=== PATIENT | male | born 1975 ===

== ENCOUNTER 2017-05-21 02:56 | Inpatient (IN) | payer OTHER ==
[2017-05-21 03:17] VITALS: BMI 38.7
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
[2017-05-21 03:42] LABS: BASO # 0.1 K/uL (0.0-0.2); BASO % 1.2 % (0.0-2.0); EOS # 0.2 K/uL (0.0-0.7); EOS % 2.5 % (0.0-4.0); HEMATOCRIT 52.3 % (35.0-51.0); LYMPH # 2.4 K/uL (1.0-4.3); LYMPH % 23.9 % (20.0-40.0); MEAN CELL VOLUME 91.3 fL (80.0-94.0); MEAN CORPUSCULAR HEMOGLOBIN 31.6 pg (27.0-31.0); MEAN CORPUSCULAR HGB CONC 34.6 g/dL (33.0-37.0); MONO % 10.3 % (0.0-10.0); NRBC % 0.1 % (0.0-2.0); RED CELL DISTRIBUTION WIDTH 14.8 % (11.5-14.5)
[2017-05-21 03:52] LABS: INR 1.1
[2017-05-21 03:54] LABS: ALCOHOL SERUM 233 mg/dl (0-10); ALKALINE PHOSPHATASE 121 U/L (38-126); ALT/SGPT 124 U/L (21-72); AST/SGOT 101 U/L (17-59); BILIRUBIN,TOTAL 0.7 mg/dL (0.2-1.3); BLOOD UREA NITROGEN 9 mg/dL (9-20); CALCIUM 8.6 mg/dl (8.6-10.4); CARBON DIOXIDE 21 mmol/L (22-30); CHLORIDE 94 mmol/L (98-107); GFR AFRICAN-AMERICAN > 60; GLUCOSE,RANDOM 103 mg/dL (75-110); POTASSIUM 3.7 mmol/L (3.6-5.2); SODIUM 134 mmol/L (132-148)
[2017-05-21 04:15] LABS: ALB/GLOB RATIO 1.1 (1.0-2.1)
[2017-05-21] MEDS ORDERED: Lidocaine 2% w Epi 1:100,000 Inj IJ ONE (04:40)
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
[2017-05-21] MEDS ORDERED: Bacitracin 500 Units/gm Oint Foilpak UD ONE ×2 (05:25→15:40)
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
[2017-05-21] MEDS ORDERED: cefTRIAXone IV 1 gm in Dextros 50 ML IVPB ONE (06:45)
[2017-05-21] MEDS: Potassium Ch 20mEq in D5-1/2NS 1,000 ML IV SCH ×3 (06:58→15:00)
[2017-05-21] MEDS: cefTRIAXone IV 1 gm in Dextros 50 ML IVPB SCH (07:00)
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
[2017-05-21] MEDS ORDERED: Tetanus/Diphtheria Toxoids 0.5 ml Syringe IM ONE (07:15)
[2017-05-21] MEDS: Vancomycin 1 gm/NS 200 ml 1 GM/200 ML BAG IVPB SCH ×2 (08:49→20:00)
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
[2017-05-21 09:50] LABS: BASO # 0.1 K/uL (0.0-0.2); BASO % 1.1 % (0.0-2.0); EOS # 0.1 K/uL (0.0-0.7); EOS % 0.5 % (0.0-4.0); HEMATOCRIT 48.6 % (35.0-51.0); LYMPH # 1.5 K/uL (1.0-4.3); LYMPH % 14.7 % (20.0-40.0); MEAN CELL VOLUME 91.4 fL (80.0-94.0); MEAN CORPUSCULAR HEMOGLOBIN 31.4 pg (27.0-31.0); MEAN CORPUSCULAR HGB CONC 34.3 g/dL (33.0-37.0); MEAN PLATELET VOLUME 8.9 fL (7.2-11.7); MONO % 10.1 % (0.0-10.0); NRBC % 0.8 % (0.0-2.0); RED CELL DISTRIBUTION WIDTH 14.3 % (11.5-14.5); WHITE BLOOD COUNT 9.9 K/uL (4.8-10.8)
[2017-05-21 10:30] LABS: THYROID STIMULATING HORMONE 2.72 mIU/L (0.46-4.68)
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
[2017-05-21] MEDS ORDERED: Metoprolol 1 mg/ml Inj IVP ONE ×2 (12:00→12:08)
[2017-05-21] MEDS ORDERED: Lidocaine 4% (Laryng-O-Jet) Kit MM ONE (12:13)
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
[2017-05-21] MEDS ORDERED: Propofol 10 mg/ml Inj (20 ML) ONE ×3 (12:28→15:24)
[2017-05-21] MEDS ORDERED: Midazolam 2 MG/2 ML VIAL ONE ×3 (12:34→15:23)
[2017-05-21] MEDS ORDERED: Propofol 10 mg/ml Inj (20 ML) IV ONE (13:16)
[2017-05-21] MEDS ORDERED: Lactated Ringer's 1,000 ML IV ONE ×2 (13:37→16:30)
--- NOTE | 2017-05-21 14:04 | CARD ---
APPROVED REPORT EXAM: Two-dimensional and M-mode echocardiogram with Doppler and color Doppler. Other Information Quality : GoodRhythm : INDICATION Abnormal EKG/Arrhythmia Chest Pain Palpitations 2D DIMENSIONS IVSd1.1 (0.7-1.1cm)LVDd4.1 (3.9-5.9cm) PWd1.2 (0.7-1.1cm)LVDs2.8 (2.5-4.0cm) FS (%) 31.5 %LVEF (%)59.8 (>50%) M-Mode DIMENSIONS Left Atrium (MM)4.22 (2.5-4.0cm)Aortic Root3.68 (2.2-3.7cm) Aortic Cusp Exc.2.50 (1.5-2.0cm) Mitral Valve E/A ratio0.0 TDI E/Lateral E'0.0E/Medial E'0.0 Tricuspid Valve TR Peak [id number]/sTR Peak Gr.128mmHg LEFT VENTRICLE The left ventricle is normal size. There is normal left ventricular wall thickness. The left ventricular function is normal. The left ventricular ejection fraction is within the normal range. There is normal LV segmental wall motion. Transmitral Doppler flow pattern is Grade I-abnormal relaxation pattern. RIGHT VENTRICLE The right ventricle is normal size. There is normal right ventricular wall thickness. The right ventricular systolic function is normal. ATRIA The left atrium is borderline dilated. The right atrium size is normal. AORTIC VALVE The aortic valve is normal in structure. No aortic regurgitation is present. There is no aortic valvular stenosis. MITRAL VALVE The mitral valve is normal in structure. There is no evidence of mitral valve prolapse. TRICUSPID VALVE The tricuspid valve is normal in structure. GREAT VESSELS The aortic root is normal in size. The IVC was not visualized. <Conclusion> The left ventricle is normal size. There is normal left ventricular wall thickness. The left ventricular function is normal. The left ventricular ejection fraction is within the normal range. There is normal LV segmental wall motion. Transmitral Doppler flow pattern is Grade I-abnormal relaxation pattern.
[2017-05-21] MEDS ORDERED: Bacitracin 150,000 UNIT in Sodium Chloride 0.9% Irrig 3,000 ML IR SCH (14:59)
[2017-05-21 15:01] LABS: BLOOD UREA NITROGEN 6 mg/dL (9-20); CALCIUM 7.9 mg/dl (8.6-10.4); CARBON DIOXIDE 16 mmol/L (22-30); CHLORIDE 100 mmol/L (98-107); GFR AFRICAN-AMERICAN > 60; GLUCOSE,RANDOM 109 mg/dL (75-110); MAGNESIUM 1.4 mg/dL (1.6-2.3); PHOSPHOROUS 3.3 mg/dL (2.5-4.5); POTASSIUM 3.5 mmol/L (3.6-5.2); SODIUM 132 mmol/L (132-148)
[2017-05-21] MEDS: Magnesium Sulfate 1 gm in D5W 1 GM/100 ML BAG IVPB SCH ×2 (15:23→16:01)
[2017-05-21] MEDS ORDERED: Lidocaine Hydrochloride 5 ML INJ ONE (15:25)
[2017-05-21] MEDS ORDERED: ceFAZolin IV 2 gm in Dextrose 2 GM/50 ML BAG IVPB ONE (15:40)
[2017-05-21] MEDS ORDERED: Bacitracin Ointment 30 GM TUBE ONE (16:10)
[2017-05-21] MEDS ORDERED: Albuterol HFA 90 mcg/actuation (8 g) ONE (16:43)
[2017-05-21] MEDS ORDERED: Morphine 4 MG/ML VIAL ONE ×2 (16:50→17:53)
[2017-05-21] MEDS ORDERED: Phenylephrine 10 mg/ml Inj ONE (17:01)
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
--- NOTE | 2017-05-21 18:52 | PCM.SURG1 ---
Surgeon's Initial Post Op Note - Surgeon's Notes Surgeon: Willie [employer] Accounts Director: MICHELL Bass Type of Anesthesia: General Endo Anesthesia Administered By: DR Estevez Pre-Operative Diagnosis: Open fracture R patella Operative Findings: open fracture R patella. Quad tendon rupture (right). rupture lateral retinaculum. synovitis Post-Operative Diagnosis: fx proximal pole patella- avulsion. rupture quad tendon. rupture lateral retinaculum. skin necrosis Operation Performed: open treatment open patella fx. primary repair quad tendon. primary repair ;lateral patella retinaculum. arthrotomy/partial synovectomy. excision skin/subcutaneous tissue/muscle. irrigation debridemnt open fx pateela(culture and biopsy). applx knee immobilizer. positioning of fluor/interpreattion of video images Specimen/Specimens Removed: bone/tendon/synovium Estimated Blood Loss: EBL {In ML}: 20 Blood Products Given: N/A Drains Used: No Drains Post-Op Condition: Good Date of Surgery/Procedure: 05/21/17 Time of Surgery/Procedure: 17:15 (time in room anaesthesia indcution time)
[2017-05-21] MEDS: Dextrose 5%/0.45% NS 1,000 ML IV SCH (20:00)
[2017-05-22] MEDS: Potassium Ch 20mEq in D5-1/2NS 1,000 ML IV SCH (00:10)
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
[2017-05-22] MEDS: cefTRIAXone IV 1 gm in Dextros 50 ML IVPB SCH (06:27)
[2017-05-22 06:55] LABS: BASO % 0.1 % (0.0-2.0); HEMATOCRIT 45.4 % (35.0-51.0); LYMPH # 0.6 K/uL (1.0-4.3); MEAN CELL VOLUME 91.2 fL (80.0-94.0); MEAN CORPUSCULAR HEMOGLOBIN 31.4 pg (27.0-31.0); MEAN CORPUSCULAR HGB CONC 34.5 g/dL (33.0-37.0); MEAN PLATELET VOLUME 9.6 fL (7.2-11.7); MONO # 0.5 K/uL (0.0-0.8); MONO % 3.5 % (0.0-10.0); NRBC % 0.4 % (0.0-2.0); PLATELET COUNT 203 K/uL (130-400); WHITE BLOOD COUNT 15.3 K/uL (4.8-10.8)
[2017-05-22 07:13] LABS: ALB/GLOB RATIO 1.7 (1.0-2.1); ALKALINE PHOSPHATASE 65 U/L (38-126); ALT/SGPT 76 U/L (21-72); AST/SGOT 56 U/L (17-59); BILIRUBIN,TOTAL 1.2 mg/dL (0.2-1.3); BLOOD UREA NITROGEN 9 mg/dL (9-20); CALCIUM 7.6 mg/dl (8.6-10.4); CARBON DIOXIDE 24 mmol/L (22-30); CHLORIDE 97 mmol/L (98-107); GFR AFRICAN-AMERICAN > 60; GLUCOSE,RANDOM 154 mg/dL (75-110); MAGNESIUM 1.8 mg/dL (1.6-2.3); PHOSPHOROUS 1.7 mg/dL (2.5-4.5); POTASSIUM 3.9 mmol/L (3.6-5.2); SODIUM 132 mmol/L (132-148); TOTAL PROTEIN 5.8 g/dL (6.3-8.3)
[2017-05-22] MEDS ORDERED: Sodium Phosphate 15 MMOLE in Sodium Chloride 0.9% 250 ML IVPB ONE (07:55)
[2017-05-22] MEDS: Dextrose 5%/0.45% NS 1,000 ML IV SCH ×2 (08:06→16:56)
[2017-05-22] MEDS: Vancomycin 1 gm/NS 200 ml 1 GM/200 ML BAG IVPB SCH ×2 (08:07→20:00)
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
--- NOTE | 2017-05-22 08:51 | RAD ---
PROCEDURE: Intraoperative Fluoroscopy. HISTORY: RIGHT PATELLA FX FINDINGS: Fluoroscopic assistance was provided for apparent open reduction internal fixation of right patellar fracture.. Please refer to the time was utilized with a cumulative radiation dose is 0.40 mGy.
[2017-05-22 09:09] LABS: NEUTROPHIL 85 % (50-75); TOTAL CELLS COUNTED 100
[2017-05-22 09:10] LABS: GIANT PLATELETS PRESENT; LARGE PLATELETS PRESENT
[2017-05-22] MEDS: Potassium & Sodium Phosphate PO SCH ×3 (09:20→17:06)
[2017-05-22] MEDS: diltiaZEM 120 mg/24 Hours CD Cap PO SCH (10:40)
[2017-05-22] MEDS: Docusate-Senna 50 mg-8.6 mg Tab PO SCH ×2 (10:41→17:06)
[2017-05-22] MEDS: Enoxaparin 40 mg Syringe SC SCH (10:41)
--- NOTE | 2017-05-22 11:02 | CARD ---
APPROVED REPORT EKG Measurement Heart [id number] <Conclusion> Atrial flutter with rvr Abnormal ECG
--- NOTE | 2017-05-22 11:10 | CARD ---
APPROVED REPORT EKG Measurement Heart [id number] <Conclusion> Atrial fibrillation with rapid ventricular response with premature ventricular or aberrantly conducted complexes Moderate voltage criteria for LVH, may be normal variant Nonspecific ST and T wave abnormality Abnormal ECG
--- NOTE | 2017-05-22 11:11 | CARD ---
APPROVED REPORT EKG Measurement Heart [id number] <Conclusion> Supraventricular tachycardia Marked ST abnormality, possible lateral subendocardial injury Abnormal ECG
--- NOTE | 2017-05-22 11:40 | CP.CCUPN ---
<EduardoJoselyn L. - Last Filed: 05/22/17 11:33> CCU Subjective - Physician Review Subjective (Free Text): Patient seen and examined at bedside and in no acute distress. Patient says his right knee pain is tolerable with the pain medication. Patient has had no bowel movement. Patient has some chest wall pain from the air bag deploying, but says it is better today than yesterday. Patient denies any nausea, vomiting, abdominal pain, constipation, or diarrhea. CCU Objective - Vital Signs / Intake & Output Vital Signs (Last 4 hours): Vital Signs Pulse Resp BP Pulse Ox 05/22/17 09:19 123/63 05/22/17 08:13 64 16 119/61 97 05/22/17 08:00 63 16 97 Intake and Output (Last 8hrs): Intake & Output 05/21/17 05/22/17 05/22/17 22:59 06:59 14:59 Intake Total 752.5 730 177.5 Output Total 1320 0 0 Balance -567.5 730 177.5 Weight 235 lb 4.8 oz Intake: IV 75 50 Intake, IV Amount 677.5 680 177.5 Left Forearm 577.5 600 162.5 Right Forearm 100 80 15 Oral 0 0 0 Output: Urine 1320 0 0 Urine, Voided 1320 0 0 Other: # Voids Urine, Voided 1 - Physical Exam Head: Positive for: Atraumatic, Normocephalic Pupils: Positive for: PERRL Extroacular Muscles: Positive for: EOMI Mouth: Positive for: Moist Mucous Membranes Respiratory/Chest: Positive for: Clear to Auscultation, Good Air Exchange. Negative for: Respiratory Distress Abdomen: Positive for: Normal Bowel Sounds. Negative for: Tenderness, Distention Upper Extremity: Positive for: Other (right lower patella dressing with tenderness on palpation) Lower Extremity: Positive for: NORMAL PULSES, Other (right leg in knee imobilizer ) Skin: Positive for: Warm Psychiatric: Positive for: Alert, Oriented x 3 - Medications Active Medications: Active Medications Generic Name Dose Route Start Last Admin Trade Name Freq PRN Reason Stop Dose Admin Aspirin 81 mg 05/22/17 10:00 05/22/17 10:40 Ecotrin PO 81 mg DAILY SHAUNA Administration Diltiazem HCl 120 mg 05/22/17 10:00 05/22/17 10:40 Cardizem Cd PO 120 mg DAILY SHAUNA Administration Enoxaparin Sodium 40 mg 05/22/17 10:00 05/22/17 10:41 Lovenox SC 40 mg DAILY SHAUNA Administration Hydromorphone/Sodium Chloride 6 mg 05/21/17 21:07 05/21/17 22:10 Dilaudid Therapy Manager IV 6 mg Q4H PRN Administration Pain, moderate (4-7) Protocol Potassium Chloride/Dextrose/Sod Cl 1,000 mls @ 125 mls/hr 05/21/17 07:00 00:10 Potassium Chl 20 Meq In D5-1/2ns IV Not Given .Q8H SHAUNA Vancomycin/Sodium Chloride 1 gm in 200 mls @ 133.333 mls/hr 05/21/17 07:30 08:07 Vancomycin 1 Gm/Ns 200 Ml IVPB 05/26/17 07:31 133.333 mls/hr Q12H SHAUNA Administration Ceftriaxone Sodium 50 mls @ 100 mls/hr 05/21/17 07:15 05/22/17 06:27 Rocephin Iv 1 Gm Duplex IVPB 100 mls/hr Q24H SHAUNA Administration Diltiazem HCl 125 mg/ Sodium 125 mls @ 5 mls/hr 05/21/17 20:45 05/22/17 06:06 Chloride IV 5 mg/hr .Q24H PRN 5 mls/hr Protocol Administration 5 MG/HR Dextrose/Sodium Chloride 1,000 mls @ 75 mls/hr 05/21/17 19:00 05/22/17 08:06 Dextrose 5%/0.45% Ns 1000 Ml IV Not Given .[id number] SHAUNA Sodium Phosphate 15 mmole/ 255 mls @ 50 mls/hr 05/22/17 07:55 05/22/17 09:20 Sodium Chloride IVPB 05/22/17 13:00 50 mls/hr .Q5H6M ONE Administration Metoprolol Tartrate 25 mg 05/21/17 10:00 05/22/17 09:19 Lopressor PO 25 mg BID SHAUNA Administration Nicotine 1 patch 05/21/17 10:00 05/22/17 09:20 Nicoderm Cq TD 1 patch DAILY SHAUNA Administration Pantoprazole Sodium 40 mg 05/21/17 10:00 05/22/17 09:20 Protonix Inj IVP 40 mg DAILY SHAUNA Administration Potassium Phos/Sodium Phos 1 pkt 05/22/17 09:00 05/22/17 09:20 Neutra-Phos PO 05/22/17 17:01 1 pkt TIDCC SHAUNA Administration Senna/Docusate Sodium 1 tab 05/22/17 10:00 05/22/17 10:41 Senokot S 50 Mg-8.6 Mg PO 1 tab BID SHAUNA Administration - Patient Studies Lab Studies: Microbiology Studies 05/21/17 19:30 Gram Stain - Final Knee - Right 05/21/17 19:30 Gram Stain - Final Knee - Right Lab Studies 05/22/17 05/22/17 05/21/17 Range/Units 06:44 06:44 15:07 WBC 15.3 H D (4.8-10.8) K/uL RBC 4.98 (4.40-5.90) Mil/uL Hgb 15.7 (12.0-18.0) g/dL Hct 45.4 (35.0-51.0) % MCV 91.2 (80.0-94.0) fL MCH 31.4 H (27.0-31.0) pg MCHC 34.5 (33.0-37.0) g/dL RDW 14.0 (11.5-14.5) % Plt Count 203 (130-400) K/uL MPV 9.6 (7.2-11.7) fL Neut % (Auto) 92.4 H (50.0-75.0) % Lymph % (Auto) 4.0 L (20.0-40.0) % [place] % (Auto) 3.5 (0.0-10.0) % Eos % (Auto) 0.0 (0.0-4.0) % Baso % (Auto) 0.1 (0.0-2.0) % Neut # 14.2 H (1.8-7.0) K/uL Lymph # 0.6 L (1.0-4.3) K/uL [place] # 0.5 (0.0-0.8) K/uL Eos # 0.0 (0.0-0.7) K/uL Baso # 0.0 (0.0-0.2) K/uL Neutrophils % (Manual) 85 H (50-75) % Band Neutrophils % 8 H (0-2) % Lymphocytes % (Manual) 6 L (20-40) % Monocytes % (Manual) 1 (0-10) % Platelet Estimate Normal (NORMAL) Large Platelets Present Giant Platelets Present Sodium 132 (132-148) mmol/L Potassium 3.9 (3.6-5.2) mmol/L Chloride 97 L (98-107) mmol/L Carbon Dioxide 24 (22-30) mmol/L Anion Gap 14 (10-20) BUN 9 (9-20) mg/dL Creatinine 0.8 (0.8-1.5) mg/dL Est GFR ( Amer) > 60 Est GFR (Non-Af Amer) > 60 Random Glucose 154 H (75-110) mg/dL Calcium 7.6 L (8.6-10.4) mg/dl Phosphorus 1.7 L (2.5-4.5) mg/dL Magnesium 1.8 (1.6-2.3) mg/dL Total Bilirubin 1.2 (0.2-1.3) mg/dL AST 56 (17-59) U/L ALT 76 H D (21-72) U/L Alkaline Phosphatase 65 (38-126) U/L Total Creatine Kinase (55-170) U/L CK-MB (Mass) (0.0-3.38) ng/mL Troponin I (0.00-0.120) ng/mL Troponin I, Quant (0.00-0.120) ng/mL NT-Pro-B Natriuret Pep (0-450) pg/mL Total Protein 5.8 L (6.3-8.3) g/dL Albumin 3.6 (3.5-5.0) g/dL Globulin 2.2 (2.2-3.9) gm/dL Albumin/Globulin Ratio 1.7 (1.0-2.1) TSH 3rd Generation (0.46-4.68) mIU/L Urine Opiates Screen (NEGATIVE) Urine Methadone Screen (NEGATIVE) Ur Barbiturates Screen (NEGATIVE) Ur Phencyclidine Scrn (NEGATIVE) Ur Amphetamines Screen (NEGATIVE) U Benzodiazepines Scrn (NEGATIVE) U Oth Cocaine Metabols (NEGATIVE) U Cannabinoids Screen (NEGATIVE) Hepatitis A IgM Ab (NEGATIVE) Hep Bs Antigen (NEGATIVE) Hep B Core IgM Ab (NEGATIVE) Hepatitis C Antibody (NEGATIVE) Blood Type O POSITIVE Antibody Screen Negative 05/21/17 05/21/17 05/21/17 Range/Units 15:07 12:18 10:54 WBC (4.8-10.8) K/uL RBC (4.40-5.90) Mil/uL Hgb (12.0-18.0) g/dL Hct (35.0-51.0) % MCV (80.0-94.0) fL MCH (27.0-31.0) pg MCHC (33.0-37.0) g/dL RDW (11.5-14.5) % Plt Count (130-400) K/uL MPV (7.2-11.7) fL Neut % (Auto) (50.0-75.0) % Lymph % (Auto) (20.0-40.0) % [place] % (Auto) (0.0-10.0) % Eos % (Auto) (0.0-4.0) % Baso % (Auto) (0.0-2.0) % Neut # (1.8-7.0) K/uL Lymph # (1.0-4.3) K/uL [place] # (0.0-0.8) K/uL Eos # (0.0-0.7) K/uL Baso # (0.0-0.2) K/uL Neutrophils % (Manual) (50-75) % Band Neutrophils % (0-2) % Lymphocytes % (Manual) (20-40) % Monocytes % (Manual) (0-10) % Platelet Estimate (NORMAL) Large Platelets Giant Platelets Sodium (132-148) mmol/L Potassium (3.6-5.2) mmol/L Chloride (98-107) mmol/L Carbon Dioxide (22-30) mmol/L Anion Gap (10-20) BUN (9-20) mg/dL Creatinine (0.8-1.5) mg/dL Est GFR ( Amer) Est GFR (Non-Af Amer) Random Glucose (75-110) mg/dL Calcium (8.6-10.4) mg/dl Phosphorus (2.5-4.5) mg/dL Magnesium (1.6-2.3) mg/dL Total Bilirubin (0.2-1.3) mg/dL AST (17-59) U/L ALT (21-72) U/L Alkaline Phosphatase (38-126) U/L Total Creatine Kinase 874 H (55-170) U/L CK-MB (Mass) 2.56 (0.0-3.38) ng/mL Troponin I (0.00-0.120) ng/mL Troponin I, Quant < 0.0120 (0.00-0.120) ng/mL NT-Pro-B Natriuret Pep (0-450) pg/mL Total Protein (6.3-8.3) g/dL Albumin (3.5-5.0) g/dL Globulin (2.2-3.9) gm/dL Albumin/Globulin Ratio (1.0-2.1) TSH 3rd Generation (0.46-4.68) mIU/L Urine Opiates Screen Positive H (NEGATIVE) Urine Methadone Screen Negative (NEGATIVE) Ur Barbiturates Screen Negative (NEGATIVE) Ur Phencyclidine Scrn Negative (NEGATIVE) Ur Amphetamines Screen Negative (NEGATIVE) U Benzodiazepines Scrn Negative (NEGATIVE) U Oth Cocaine Metabols Negative (NEGATIVE) U Cannabinoids Screen Negative (NEGATIVE) Hepatitis A IgM Ab Negative (NEGATIVE) Hep Bs Antigen Negative (NEGATIVE) Hep B Core IgM Ab Negative (NEGATIVE) Hepatitis C Antibody Negative (NEGATIVE) Blood Type Antibody Screen 05/21/17 Range/Units 09:42 WBC (4.8-10.8) K/uL RBC (4.40-5.90) Mil/uL Hgb (12.0-18.0) g/dL Hct (35.0-51.0) % MCV (80.0-94.0) fL MCH (27.0-31.0) pg MCHC (33.0-37.0) g/dL RDW (11.5-14.5) % Plt Count (130-400) K/uL MPV (7.2-11.7) fL Neut % (Auto) (50.0-75.0) % Lymph % (Auto) (20.0-40.0) % [place] % (Auto) (0.0-10.0) % Eos % (Auto) (0.0-4.0) % Baso % (Auto) (0.0-2.0) % Neut # (1.8-7.0) K/uL Lymph # (1.0-4.3) K/uL [place] # (0.0-0.8) K/uL Eos # (0.0-0.7) K/uL Baso # (0.0-0.2) K/uL Neutrophils % (Manual) (50-75) % Band Neutrophils % (0-2) % Lymphocytes % (Manual) (20-40) % Monocytes % (Manual) (0-10) % Platelet Estimate (NORMAL) Large Platelets Giant Platelets Sodium 132 (132-148) mmol/L Potassium 3.5 L (3.6-5.2) mmol/L Chloride 100 (98-107) mmol/L Carbon Dioxide 16 L (22-30) mmol/L Anion Gap 20 (10-20) BUN 6 L (9-20) mg/dL Creatinine 0.6 L (0.8-1.5) mg/dL Est GFR ( Amer) > 60 Est GFR (Non-Af Amer) > 60 Random Glucose 109 (75-110) mg/dL Calcium 7.9 L (8.6-10.4) mg/dl Phosphorus 3.3 (2.5-4.5) mg/dL Magnesium 1.4 L (1.6-2.3) mg/dL Total Bilirubin (0.2-1.3) mg/dL AST (17-59) U/L ALT (21-72) U/L Alkaline Phosphatase (38-126) U/L Total Creatine Kinase (55-170) U/L CK-MB (Mass) (0.0-3.38) ng/mL Troponin I < 0.0120 (0.00-0.120) ng/mL Troponin I, Quant (0.00-0.120) ng/mL NT-Pro-B Natriuret Pep 176 (0-450) pg/mL Total Protein (6.3-8.3) g/dL Albumin (3.5-5.0) g/dL Globulin (2.2-3.9) gm/dL Albumin/Globulin Ratio (1.0-2.1) TSH 3rd Generation 2.72 (0.46-4.68) mIU/L Urine Opiates Screen (NEGATIVE) Urine Methadone Screen (NEGATIVE) Ur Barbiturates Screen (NEGATIVE) Ur Phencyclidine Scrn (NEGATIVE) Ur Amphetamines Screen (NEGATIVE) U Benzodiazepines Scrn (NEGATIVE) U Oth Cocaine Metabols (NEGATIVE) U Cannabinoids Screen (NEGATIVE) Hepatitis A IgM Ab (NEGATIVE) Hep Bs Antigen (NEGATIVE) Hep B Core IgM Ab (NEGATIVE) Hepatitis C Antibody (NEGATIVE) Blood Type Antibody Screen Laboratory Results - last 24 hr 05/21/17 05/21/17 05/21/17 09:42 10:54 12:18 WBC RBC Hgb Hct MCV MCH MCHC RDW Plt Count MPV Neut % (Auto) Lymph % (Auto) [place] % (Auto) Eos % (Auto) Baso % (Auto) Neut # Lymph # [place] # Eos # Baso # Neutrophils % (Manual) Band Neutrophils % Lymphocytes % (Manual) Monocytes % (Manual) Platelet Estimate Large Platelets Giant Platelets Sodium 132 Potassium 3.5 L Chloride 100 Carbon Dioxide 16 L Anion Gap 20 BUN 6 L Creatinine 0.6 L Est GFR ( Amer) > 60 Est GFR (Non-Af Amer) > 60 Random Glucose 109 Calcium 7.9 L Phosphorus 3.3 Magnesium 1.4 L Total Bilirubin AST ALT Alkaline Phosphatase Total Creatine Kinase CK-MB (Mass) Troponin I < 0.0120 Troponin I, Quant NT-Pro-B Natriuret Pep 176 Total Protein Albumin Globulin Albumin/Globulin Ratio TSH 3rd Generation 2.72 Urine Opiates Screen Positive H Urine Methadone Screen Negative Ur Barbiturates Screen Negative Ur Phencyclidine Scrn Negative Ur Amphetamines Screen Negative U Benzodiazepines Scrn Negative U Oth Cocaine Metabols Negative U Cannabinoids Screen Negative Hepatitis A IgM Ab Negative Hep Bs Antigen Negative Hep B Core IgM Ab Negative Hepatitis C Antibody Negative Blood Type Antibody Screen 05/21/17 05/21/17 05/22/17 15:07 15:07 06:44 WBC 15.3 H D RBC 4.98 Hgb 15.7 Hct 45.4 MCV 91.2 MCH 31.4 H MCHC 34.5 RDW 14.0 Plt Count 203 MPV 9.6 Neut % (Auto) 92.4 H Lymph % (Auto) 4.0 L [place] % (Auto) 3.5 Eos % (Auto) 0.0 Baso % (Auto) 0.1 Neut # 14.2 H Lymph # 0.6 L [place] # 0.5 Eos # 0.0 Baso # 0.0 Neutrophils % (Manual) 85 H Band Neutrophils % 8 H Lymphocytes % (Manual) 6 L Monocytes % (Manual) 1 Platelet Estimate Normal Large Platelets Present Giant Platelets Present Sodium Potassium Chloride Carbon Dioxide Anion Gap BUN Creatinine Est GFR ( Amer) Est GFR (Non-Af Amer) Random Glucose Calcium Phosphorus Magnesium Total Bilirubin AST ALT Alkaline Phosphatase Total Creatine Kinase 874 H CK-MB (Mass) 2.56 Troponin I Troponin I, Quant < 0.0120 NT-Pro-B Natriuret Pep Total Protein Albumin Globulin Albumin/Globulin Ratio TSH 3rd Generation Urine Opiates Screen Urine Methadone Screen Ur Barbiturates Screen Ur Phencyclidine Scrn Ur Amphetamines Screen U Benzodiazepines Scrn U Oth Cocaine Metabols U Cannabinoids Screen Hepatitis A IgM Ab Hep Bs Antigen Hep B Core IgM Ab Hepatitis C Antibody Blood Type O POSITIVE Antibody Screen Negative 05/22/17 06:44 WBC RBC Hgb Hct MCV MCH MCHC RDW Plt Count MPV Neut % (Auto) Lymph % (Auto) [place] % (Auto) Eos % (Auto) Baso % (Auto) Neut # Lymph # [place] # Eos # Baso # Neutrophils % (Manual) Band Neutrophils % Lymphocytes % (Manual) Monocytes % (Manual) Platelet Estimate Large Platelets Giant Platelets Sodium 132 Potassium 3.9 Chloride 97 L Carbon Dioxide 24 Anion Gap 14 BUN 9 Creatinine 0.8 Est GFR ( Amer) > 60 Est GFR (Non-Af Amer) > 60 Random Glucose 154 H Calcium 7.6 L Phosphorus 1.7 L Magnesium 1.8 Total Bilirubin 1.2 AST 56 ALT 76 H D Alkaline Phosphatase 65 Total Creatine Kinase CK-MB (Mass) Troponin I Troponin I, Quant NT-Pro-B Natriuret Pep Total Protein 5.8 L Albumin 3.6 Globulin 2.2 Albumin/Globulin Ratio 1.7 TSH 3rd Generation Urine Opiates Screen Urine Methadone Screen Ur Barbiturates Screen Ur Phencyclidine Scrn Ur Amphetamines Screen U Benzodiazepines Scrn U Oth Cocaine Metabols U Cannabinoids Screen Hepatitis A IgM Ab Hep Bs Antigen Hep B Core IgM Ab Hepatitis C Antibody Blood Type Antibody Screen Review of Systems - Constitutional Constitutional: absent: Fever, Chills, Sweats - Cardiovascular Cardiovascular: absent: Dyspnea, Leg Edema - Respiratory Respiratory: absent: Cough, Wheezing - Gastrointestinal Gastrointestinal: Constipation. absent: Diarrhea, Nausea, Vomiting - Genitourinary Genitourinary: absent: Difficulty Urinating - Musculoskeletal Additional comments: right knee pain - Integumentary Integumentary: absent: Rash Critical Care Progress Note - Nutrition Nutrition: Nutrition Category Date Time Status Regular Diet [DIET] Diets 05/22/17 Breakfast Active Assessment/Plan - Assessment and Plan (Free Text) Assessment: 41 y/o M with no significant PMHx POD #1 s/p open treatment of open patella fx with primary quad tendon, lateral patella retinaculum repair. Today's Plan: Patient stable for transfer to med/surg floor. Cardio: Echocardiogram (05/21): left ventricle is normal size, normal left ventricular wall thickness, left ventricular function is normal, EF; within normal range, normal LV segmental wall motion -Dr. Echeverria consulted, help appreciated- no further cardiac intervention -Metoprolol 25mg po BID -Diltiazem CD 120 mg po daily -titrate off diltiazem drip -Aspirin 81 mg po daily GI: constipation -docusate sodium/senna 1 tab po BID Msk: POD #1 s/p open treatment of open patella fx - Dr. Harris on consult -Right leg in immobilizer -toe touch weight bearing -hydromorphone CANVAS BAST[employer] JUMPBASTING ID: -Dr. Kern consulted, help appreciated -Vancomycin 1 gm q12h -Ceftriaxone 1gm q24h Prophylaxis: DVT: Lovenox 40 mg sc daily GI: Protonix 40mg ivp daily <Adan Mas - Last Filed: 05/22/17 12:28> CCU Objective - Vital Signs / Intake & Output Vital Signs (Last 4 hours): Vital Signs Pulse Resp BP Pulse Ox 05/22/17 11:13 67 15 141/80 94 L 05/22/17 11:00 74 17 96 05/22/17 10:13 66 15 152/71 H 98 05/22/17 10:04 71 17 170/75 H 90 L 05/22/17 10:00 84 21 97 05/22/17 09:56 64 15 189/72 H 95 05/22/17 09:53 72 22 193/92 H 98 05/22/17 09:19 123/63 05/22/17 09:13 62 15 123/63 96 05/22/17 09:00 70 14 98 Intake and Output (Last 8hrs): Intake & Output 05/21/17 05/22/17 05/22/17 22:59 06:59 14:59 Intake Total 752.5 730 177.5 Output Total 1320 0 0 Balance -567.5 730 177.5 Weight 235 lb 4.8 oz Intake: IV 75 50 Intake, IV Amount 677.5 680 177.5 Left Forearm 577.5 600 162.5 Right Forearm 100 80 15 Oral 0 0 0 Output: Urine 1320 0 0 Urine, Voided 1320 0 0 Other: # Voids Urine, Voided 1 - Medications Active Medications: Active Medications Generic Name Dose Route Start Last Admin Trade Name Freq PRN Reason Stop Dose Admin Aspirin 81 mg 05/22/17 10:00 05/22/17 10:40 Ecotrin PO 81 mg DAILY SHAUNA Administration Diltiazem HCl 120 mg 05/22/17 10:00 05/22/17 10:40 Cardizem Cd PO 120 mg DAILY SHAUNA Administration Enoxaparin Sodium 40 mg 05/22/17 10:00 05/22/17 10:41 Lovenox SC 40 mg DAILY SHAUNA Administration Hydromorphone/Sodium Chloride 6 mg 05/21/17 21:07 05/21/17 22:10 Dilaudid Therapy Manager IV 6 mg Q4H PRN Administration Pain, moderate (4-7) Protocol Potassium Chloride/Dextrose/Sod Cl 1,000 mls @ 125 mls/hr 05/21/17 07:00 00:10 Potassium Chl 20 Meq In D5-1/2ns IV Not Given .Q8H SHAUNA Vancomycin/Sodium Chloride 1 gm in 200 mls @ 133.333 mls/hr 05/21/17 07:30 08:07 Vancomycin 1 Gm/Ns 200 Ml IVPB 05/26/17 07:31 133.333 mls/hr Q12H SHAUNA Administration Ceftriaxone Sodium 50 mls @ 100 mls/hr 05/21/17 07:15 05/22/17 06:27 Rocephin Iv 1 Gm Duplex IVPB 100 mls/hr Q24H SHAUNA Administration Diltiazem HCl 125 mg/ Sodium 125 mls @ 5 mls/hr 05/21/17 20:45 05/22/17 06:06 Chloride IV 5 mg/hr .Q24H PRN 5 mls/hr Protocol Administration 5 MG/HR Dextrose/Sodium Chloride 1,000 mls @ 75 mls/hr 05/21/17 19:00 05/22/17 08:06 Dextrose 5%/0.45% Ns 1000 Ml IV Not Given .[id number] SHAUNA Sodium Phosphate 15 mmole/ 255 mls @ 50 mls/hr 05/22/17 07:55 05/22/17 09:20 Sodium Chloride IVPB 05/22/17 13:00 50 mls/hr .Q5H6M ONE Administration Metoprolol Tartrate 25 mg 05/21/17 10:00 05/22/17 09:19 Lopressor PO 25 mg BID SHAUNA Administration Nicotine 1 patch 05/21/17 10:00 05/22/17 09:20 Nicoderm Cq TD 1 patch DAILY SHAUNA Administration Pantoprazole Sodium 40 mg 05/21/17 10:00 05/22/17 09:20 Protonix Inj IVP 40 mg DAILY SHAUNA Administration Potassium Phos/Sodium Phos 1 pkt 05/22/17 09:00 05/22/17 11:47 Neutra-Phos PO 05/22/17 17:01 1 pkt TIDCC SHAUNA Administration Senna/Docusate Sodium 1 tab 05/22/17 10:00 05/22/17 10:41 Senokot S 50 Mg-8.6 Mg PO 1 tab BID SHAUNA Administration - Patient Studies Lab Studies: Microbiology Studies 05/21/17 19:30 Gram Stain - Final Knee - Right 05/21/17 19:30 Gram Stain - Final Knee - Right Lab Studies 05/22/17 05/22/17 05/21/17 Range/Units 06:44 06:44 15:07 WBC 15.3 H D (4.8-10.8) K/uL RBC 4.98 (4.40-5.90) Mil/uL Hgb 15.7 (12.0-18.0) g/dL Hct 45.4 (35.0-51.0) % MCV 91.2 (80.0-94.0) fL MCH 31.4 H (27.0-31.0) pg MCHC 34.5 (33.0-37.0) g/dL RDW 14.0 (11.5-14.5) % Plt Count 203 (130-400) K/uL MPV 9.6 (7.2-11.7) fL Neut % (Auto) 92.4 H (50.0-75.0) % Lymph % (Auto) 4.0 L (20.0-40.0) % [place] % (Auto) 3.5 (0.0-10.0) % Eos % (Auto) 0.0 (0.0-4.0) % Baso % (Auto) 0.1 (0.0-2.0) % Neut # 14.2 H (1.8-7.0) K/uL Lymph # 0.6 L (1.0-4.3) K/uL [place] # 0.5 (0.0-0.8) K/uL Eos # 0.0 (0.0-0.7) K/uL Baso # 0.0 (0.0-0.2) K/uL Neutrophils % (Manual) 85 H (50-75) % Band Neutrophils % 8 H (0-2) % Lymphocytes % (Manual) 6 L (20-40) % Monocytes % (Manual) 1 (0-10) % Platelet Estimate Normal (NORMAL) Large Platelets Present Giant Platelets Present Sodium 132 (132-148) mmol/L Potassium 3.9 (3.6-5.2) mmol/L Chloride 97 L (98-107) mmol/L Carbon Dioxide 24 (22-30) mmol/L Anion Gap 14 (10-20) BUN 9 (9-20) mg/dL Creatinine 0.8 (0.8-1.5) mg/dL Est GFR ( Amer) > 60 Est GFR (Non-Af Amer) > 60 Random Glucose 154 H (75-110) mg/dL Calcium 7.6 L (8.6-10.4) mg/dl Phosphorus 1.7 L (2.5-4.5) mg/dL Magnesium 1.8 (1.6-2.3) mg/dL Total Bilirubin 1.2 (0.2-1.3) mg/dL AST 56 (17-59) U/L ALT 76 H D (21-72) U/L Alkaline Phosphatase 65 (38-126) U/L Total Creatine Kinase (55-170) U/L CK-MB (Mass) (0.0-3.38) ng/mL Troponin I (0.00-0.120) ng/mL Troponin I, Quant (0.00-0.120) ng/mL NT-Pro-B Natriuret Pep (0-450) pg/mL Total Protein 5.8 L (6.3-8.3) g/dL Albumin 3.6 (3.5-5.0) g/dL Globulin 2.2 (2.2-3.9) gm/dL Albumin/Globulin Ratio 1.7 (1.0-2.1) TSH 3rd Generation (0.46-4.68) mIU/L Urine Opiates Screen (NEGATIVE) Urine Methadone Screen (NEGATIVE) Ur Barbiturates Screen (NEGATIVE) Ur Phencyclidine Scrn (NEGATIVE) Ur Amphetamines Screen (NEGATIVE) U Benzodiazepines Scrn (NEGATIVE) U Oth Cocaine Metabols (NEGATIVE) U Cannabinoids Screen (NEGATIVE) Blood Type O POSITIVE Antibody Screen Negative 05/21/17 05/21/17 05/21/17 Range/Units 15:07 12:18 09:42 WBC (4.8-10.8) K/uL RBC (4.40-5.90) Mil/uL Hgb (12.0-18.0) g/dL Hct (35.0-51.0) % MCV (80.0-94.0) fL MCH (27.0-31.0) pg MCHC (33.0-37.0) g/dL RDW (11.5-14.5) % Plt Count (130-400) K/uL MPV (7.2-11.7) fL Neut % (Auto) (50.0-75.0) % Lymph % (Auto) (20.0-40.0) % [place] % (Auto) (0.0-10.0) % Eos % (Auto) (0.0-4.0) % Baso % (Auto) (0.0-2.0) % Neut # (1.8-7.0) K/uL Lymph # (1.0-4.3) K/uL [place] # (0.0-0.8) K/uL Eos # (0.0-0.7) K/uL Baso # (0.0-0.2) K/uL Neutrophils % (Manual) (50-75) % Band Neutrophils % (0-2) % Lymphocytes % (Manual) (20-40) % Monocytes % (Manual) (0-10) % Platelet Estimate (NORMAL) Large Platelets Giant Platelets Sodium 132 (132-148) mmol/L Potassium 3.5 L (3.6-5.2) mmol/L Chloride 100 (98-107) mmol/L Carbon Dioxide 16 L (22-30) mmol/L Anion Gap 20 (10-20) BUN 6 L (9-20) mg/dL Creatinine 0.6 L (0.8-1.5) mg/dL Est GFR ( Amer) > 60 Est GFR (Non-Af Amer) > 60 Random Glucose 109 (75-110) mg/dL Calcium 7.9 L (8.6-10.4) mg/dl Phosphorus 3.3 (2.5-4.5) mg/dL Magnesium 1.4 L (1.6-2.3) mg/dL Total Bilirubin (0.2-1.3) mg/dL AST (17-59) U/L ALT (21-72) U/L Alkaline Phosphatase (38-126) U/L Total Creatine Kinase 874 H (55-170) U/L CK-MB (Mass) 2.56 (0.0-3.38) ng/mL Troponin I < 0.0120 (0.00-0.120) ng/mL Troponin I, Quant < 0.0120 (0.00-0.120) ng/mL NT-Pro-B Natriuret Pep 176 (0-450) pg/mL Total Protein (6.3-8.3) g/dL Albumin (3.5-5.0) g/dL Globulin (2.2-3.9) gm/dL Albumin/Globulin Ratio (1.0-2.1) TSH 3rd Generation 2.72 (0.46-4.68) mIU/L Urine Opiates Screen Positive H (NEGATIVE) Urine Methadone Screen Negative (NEGATIVE) Ur Barbiturates Screen Negative (NEGATIVE) Ur Phencyclidine Scrn Negative (NEGATIVE) Ur Amphetamines Screen Negative (NEGATIVE) U Benzodiazepines Scrn Negative (NEGATIVE) U Oth Cocaine Metabols Negative (NEGATIVE) U Cannabinoids Screen Negative (NEGATIVE) Blood Type Antibody Screen Laboratory Results - last 24 hr 05/21/17 05/21/17 05/21/17 09:42 12:18 15:07 WBC RBC Hgb Hct MCV MCH MCHC RDW Plt Count MPV Neut % (Auto) Lymph % (Auto) [place] % (Auto) Eos % (Auto) Baso % (Auto) Neut # Lymph # [place] # Eos # Baso # Neutrophils % (Manual) Band Neutrophils % Lymphocytes % (Manual) Monocytes % (Manual) Platelet Estimate Large Platelets Giant Platelets Sodium 132 Potassium 3.5 L Chloride 100 Carbon Dioxide 16 L Anion Gap 20 BUN 6 L Creatinine 0.6 L Est GFR ( Amer) > 60 Est GFR (Non-Af Amer) > 60 Random Glucose 109 Calcium 7.9 L Phosphorus 3.3 Magnesium 1.4 L Total Bilirubin AST ALT Alkaline Phosphatase Total Creatine Kinase 874 H CK-MB (Mass) 2.56 Troponin I < 0.0120 Troponin I, Quant < 0.0120 NT-Pro-B Natriuret Pep 176 Total Protein Albumin Globulin Albumin/Globulin Ratio TSH 3rd Generation 2.72 Urine Opiates Screen Positive H Urine Methadone Screen Negative Ur Barbiturates Screen Negative Ur Phencyclidine Scrn Negative Ur Amphetamines Screen Negative U Benzodiazepines Scrn Negative U Oth Cocaine Metabols Negative U Cannabinoids Screen Negative Blood Type Antibody Screen 05/21/17 05/22/17 05/22/17 15:07 06:44 06:44 WBC 15.3 H D RBC 4.98 Hgb 15.7 Hct 45.4 MCV 91.2 MCH 31.4 H MCHC 34.5 RDW 14.0 Plt Count 203 MPV 9.6 Neut % (Auto) 92.4 H Lymph % (Auto) 4.0 L [place] % (Auto) 3.5 Eos % (Auto) 0.0 Baso % (Auto) 0.1 Neut # 14.2 H Lymph # 0.6 L [place] # 0.5 Eos # 0.0 Baso # 0.0 Neutrophils % (Manual) 85 H Band Neutrophils % 8 H Lymphocytes % (Manual) 6 L Monocytes % (Manual) 1 Platelet Estimate Normal Large Platelets Present Giant Platelets Present Sodium 132 Potassium 3.9 Chloride 97 L Carbon Dioxide 24 Anion Gap 14 BUN 9 Creatinine 0.8 Est GFR ( Amer) > 60 Est GFR (Non-Af Amer) > 60 Random Glucose 154 H Calcium 7.6 L Phosphorus 1.7 L Magnesium 1.8 Total Bilirubin 1.2 AST 56 ALT 76 H D Alkaline Phosphatase 65 Total Creatine Kinase CK-MB (Mass) Troponin I Troponin I, Quant NT-Pro-B Natriuret Pep Total Protein 5.8 L Albumin 3.6 Globulin 2.2 Albumin/Globulin Ratio 1.7 TSH 3rd Generation Urine Opiates Screen Urine Methadone Screen Ur Barbiturates Screen Ur Phencyclidine Scrn Ur Amphetamines Screen U Benzodiazepines Scrn U Oth Cocaine Metabols U Cannabinoids Screen Blood Type O POSITIVE Antibody Screen Negative Critical Care Progress Note - Nutrition Nutrition: Nutrition Category Date Time Status Regular Diet [DIET] Diets 05/22/17 Breakfast Active Assessment/Plan - Assessment and Plan (Free Text) Assessment: Addendum: Patient is hemodynamically stable. NSR, d/c cardizem and continue oral cardizem 120 mg CD q24hrs -post knee surgery d/w surgeon who prefers lovenox 40 mg q24 hrs, add asa as at risk of A-fib -replace phos -PT/OT toe/tough -patient remains hemodynamically stable
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
[2017-05-23 06:37] LABS: BASO % 0.1 % (0.0-2.0); HEMATOCRIT 40.8 % (35.0-51.0); LYMPH # 1.1 K/uL (1.0-4.3); LYMPH % 6.1 % (20.0-40.0); MEAN CELL VOLUME 91.6 fL (80.0-94.0); MEAN CORPUSCULAR HEMOGLOBIN 31.4 pg (27.0-31.0); MEAN CORPUSCULAR HGB CONC 34.3 g/dL (33.0-37.0); MEAN PLATELET VOLUME 9.7 fL (7.2-11.7); MONO # 1.2 K/uL (0.0-0.8); MONO % 7.2 % (0.0-10.0); NRBC % 0.1 % (0.0-2.0); PLATELET COUNT 188 K/uL (130-400); RED CELL DISTRIBUTION WIDTH 14.2 % (11.5-14.5); WHITE BLOOD COUNT 17.2 K/uL (4.8-10.8)
[2017-05-23 06:52] LABS: BLOOD UREA NITROGEN 11 mg/dL (9-20); GLUCOSE,RANDOM 97 mg/dL (75-110)
[2017-05-23 06:53] LABS: ALB/GLOB RATIO 1.1 (1.0-2.1); AST/SGOT 44 U/L (17-59); BILIRUBIN,TOTAL 0.9 mg/dL (0.2-1.3); CALCIUM 7.9 mg/dl (8.6-10.4); CARBON DIOXIDE 25 mmol/L (22-30); CHLORIDE 100 mmol/L (98-107); GFR AFRICAN-AMERICAN > 60; MAGNESIUM 2.2 mg/dL (1.6-2.3); PHOSPHOROUS 2.6 mg/dL (2.5-4.5); POTASSIUM 3.8 mmol/L (3.6-5.2); SODIUM 134 mmol/L (132-148); TOTAL PROTEIN 7.1 g/dL (6.3-8.3)
[2017-05-23 06:54] LABS: ALKALINE PHOSPHATASE 62 U/L (38-126); ALT/SGPT 67 U/L (21-72)
[2017-05-23] MEDS: Dextrose 5%/0.45% NS 1,000 ML IV SCH (07:15)
[2017-05-23] MEDS: cefTRIAXone IV 1 gm in Dextros 50 ML IVPB SCH (07:16)
[2017-05-23] MEDS: Vancomycin 1 gm/NS 200 ml 1 GM/200 ML BAG IVPB SCH ×2 (07:35→19:00)
[2017-05-23 08:36] LABS: NEUTROPHIL 89 % (50-75); TOTAL CELLS COUNTED 100
[2017-05-23 08:37] LABS: LARGE PLATELETS PRESENT
[2017-05-23 08:38] LABS: GIANT PLATELETS PRESENT
[2017-05-23] MEDS: Enoxaparin 40 mg Syringe SC SCH (09:24)
[2017-05-23] MEDS: diltiaZEM 120 mg/24 Hours CD Cap PO SCH (09:24)
[2017-05-23] MEDS: Docusate-Senna 50 mg-8.6 mg Tab PO SCH ×2 (09:24→17:54)
--- NOTE | 2017-05-23 09:27 | RAD ---
Chest x-ray single frontal view History: Leukocytosis. Comparison 05/21/2017 Findings: Mild venous congestion. Mild increased markings at the lung bases may represent mild atelectasis. Clinical correlation. Heart size within normal limits. Chronic deformity of the distal right clavicle. Impression: Mild venous congestion. Mild increased markings at the lung bases may represent mild atelectasis. Clinical correlation. Heart size within normal limits. Chronic deformity of the distal right clavicle.
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
--- NOTE | 2017-05-23 22:33 | CP.PCM.PN ---
Subjective - Date & Time of Evaluation Date of Evaluation: 05/23/17 Time of Evaluation: 22:32 - Subjective Subjective: in NSR c/o coughing Objective - Vital Signs/Intake and Output Vital Signs (last 24 hours): Temp Pulse Resp BP Pulse Ox 98.0 F 67 19 140/80 97 05/23/17 15:35 05/23/17 15:35 05/23/17 15:35 05/23/17 17:52 05/23/17 15:35 Intake and Output: 05/23/17 05/24/17 18:59 06:59 Intake Total 600 Balance 600 - Medications Medications: Current Medications Amiodarone HCl (Cordarone) 200 mg PO TID [facility] Last Admin: 05/23/17 17:52 Dose: 200 mg Aspirin (Ecotrin) 81 mg PO DAILY [facility] Last Admin: 05/23/17 09:24 Dose: 81 mg Diltiazem HCl (Cardizem Cd) 120 mg PO DAILY [facility] Last Admin: 05/23/17 09:24 Dose: 120 mg Enoxaparin Sodium (Lovenox) 40 mg SC DAILY [facility] Last Admin: 05/23/17 09:24 Dose: 40 mg Hydromorphone/Sodium Chloride (Dilaudid Weigh Boss) 6 mg IV Q4H PRN; Protocol PRN Reason: Pain, moderate (4-7) Last Admin: 05/23/17 00:13 Dose: 6 mg Potassium Chloride/Dextrose/Sod Cl (Potassium Chl 20 Meq In D5-1/2ns) 1,000 mls @ 125 mls/hr IV .Q8H [facility] Last Admin: 05/22/17 00:10 Dose: Not Given Vancomycin/Sodium Chloride (Vancomycin 1 Gm/Ns 200 Ml) 1 gm in 200 mls @ 133.333 mls/hr IVPB Q12H [facility] Stop: 05/26/17 07:31 Last Admin: 05/23/17 19:00 Dose: 133.333 mls/hr Ceftriaxone Sodium (Rocephin Iv 1 Gm Duplex) 50 mls @ 100 mls/hr IVPB Q24H [facility] Last Admin: 05/23/17 07:16 Dose: 100 mls/hr Dextrose/Sodium Chloride (Dextrose 5%/0.45% Ns 1000 Ml) 1,000 mls @ 75 mls/hr IV .[id number] [facility] Last Admin: 05/23/17 07:15 Dose: 75 mls/hr Metoprolol Tartrate (Lopressor) 25 mg PO BID [facility] Last Admin: 05/23/17 17:52 Dose: 25 mg Nicotine (Nicoderm Cq) 1 patch TD DAILY [facility] Last Admin: 05/23/17 11:00 Dose: 1 patch Pantoprazole Sodium (Protonix Inj) 40 mg IVP DAILY [facility] Last Admin: 05/23/17 09:22 Dose: 40 mg Senna/Docusate Sodium (Senokot S 50 Mg-8.6 Mg) 1 tab PO BID [facility] Last Admin: 05/23/17 17:54 Dose: Not Given - Labs Labs: 05/23/17 06:27 05/23/17 06:27 PT 12.1 SECONDS (9.7-12.2) 05/21/17 03:38 INR 1.1 05/21/17 03:38 APTT 31 SECONDS (21-34) 05/21/17 03:38 - Constitutional Appears: Well - Head Exam Head Exam: ATRAUMATIC, NORMAL INSPECTION, NORMOCEPHALIC - Eye Exam Eye Exam: EOMI, Normal appearance, PERRL Pupil Exam: NORMAL ACCOMODATION, PERRL - ENT Exam ENT Exam: Mucous Membranes Moist, Normal Exam - Neck Exam Neck Exam: Full ROM, Normal Inspection. absent: Lymphadenopathy - Respiratory Exam Respiratory Exam: Clear to Ausculation Bilateral, NORMAL BREATHING PATTERN - Cardiovascular Exam Cardiovascular Exam: REGULAR RHYTHM, +S1, +S2. absent: Murmur - GI/Abdominal Exam GI & Abdominal Exam: Soft, Normal Bowel Sounds. absent: Tenderness - Extremities Exam Extremities Exam: Full ROM, Normal Capillary Refill, Normal Inspection. absent : Joint Swelling, Pedal Edema - Back Exam Back Exam: NORMAL INSPECTION - Neurological Exam Neurological Exam: Alert, Awake, CN II-XII Intact, Normal Gait, Oriented x3 - Psychiatric Exam Psychiatric exam: Normal Affect, Normal Mood - Skin Skin Exam: Dry, Intact, Normal Color, Warm Assessment and Plan (1) Preop cardiovascular exam Assessment & Plan: stable post op Status: Acute (2) Atrial fibrillation Assessment & Plan: in NSR post AILEEN/CV chg amiodarone to 200mg po bid cont ccb and BB cont asa Status: Acute (3) Chest wall contusion Status: Acute (4) SVT (supraventricular tachycardia) Status: Acute
[2017-05-24] MEDS: Dextrose 5%/0.45% NS 1,000 ML IV SCH ×3 (00:22→14:35)
[2017-05-24] MEDS: cefTRIAXone IV 1 gm in Dextros 50 ML IVPB SCH (06:15)
[2017-05-24 07:52] LABS: BASO % 0.2 % (0.0-2.0); EOS % 0.4 % (0.0-4.0); HEMATOCRIT 40.8 % (35.0-51.0); LYMPH # 1.8 K/uL (1.0-4.3); LYMPH % 14.8 % (20.0-40.0); MEAN CELL VOLUME 91.4 fL (80.0-94.0); MEAN CORPUSCULAR HEMOGLOBIN 31.5 pg (27.0-31.0); MEAN CORPUSCULAR HGB CONC 34.4 g/dL (33.0-37.0); MEAN PLATELET VOLUME 9.1 fL (7.2-11.7); MONO # 0.8 K/uL (0.0-0.8); MONO % 6.5 % (0.0-10.0); NRBC % 0.1 % (0.0-2.0); RED CELL DISTRIBUTION WIDTH 14.3 % (11.5-14.5); WHITE BLOOD COUNT 12.4 K/uL (4.8-10.8)
[2017-05-24] MEDS: Vancomycin 1 gm/NS 200 ml 1 GM/200 ML BAG IVPB SCH ×2 (07:52→18:39)
[2017-05-24 08:06] LABS: ALB/GLOB RATIO 1.5 (1.0-2.1); ALKALINE PHOSPHATASE 86 U/L (38-126); ALT/SGPT 68 U/L (21-72); AST/SGOT 49 U/L (17-59); BLOOD UREA NITROGEN 13 mg/dL (9-20); CALCIUM 7.6 mg/dl (8.6-10.4); CARBON DIOXIDE 24 mmol/L (22-30); CHLORIDE 99 mmol/L (98-107); GFR AFRICAN-AMERICAN > 60; GLUCOSE,RANDOM 92 mg/dL (75-110); POTASSIUM 3.3 mmol/L (3.6-5.2); SODIUM 134 mmol/L (132-148); TOTAL PROTEIN 6.2 g/dL (6.3-8.3)
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
[2017-05-24] MEDS: Enoxaparin 40 mg Syringe SC SCH (09:44)
[2017-05-24] MEDS: diltiaZEM 120 mg/24 Hours CD Cap PO SCH (09:45)
[2017-05-24] MEDS: Potassium Chloride 20 mEq ER Tab PO SCH ×2 (10:01→13:36)
[2017-05-24] MEDS: Docusate-Senna 50 mg-8.6 mg Tab PO SCH ×2 (10:03→18:37)
--- NOTE | 2017-05-24 12:46 | CP.PCM.PN ---
Subjective - Date & Time of Evaluation Date of Evaluation: 05/24/17 Time of Evaluation: 12:35 - Subjective Subjective: S- pt improved;still with post op incisional discomfort Objective - Vital Signs/Intake and Output Vital Signs (last 24 hours): Temp Pulse Resp BP Pulse Ox 98.4 F 66 18 160/82 H 97 05/24/17 07:30 05/24/17 07:30 05/24/17 07:30 05/24/17 09:45 05/24/17 07:30 - Medications Medications: Current Medications Amiodarone HCl (Cordarone) 200 mg PO TID [facility] Last Admin: 05/24/17 10:01 Dose: 200 mg Aspirin (Ecotrin) 81 mg PO DAILY [facility] Last Admin: 05/24/17 09:45 Dose: 81 mg Diltiazem HCl (Cardizem Cd) 120 mg PO DAILY [facility] Last Admin: 05/24/17 09:45 Dose: 120 mg Enoxaparin Sodium (Lovenox) 40 mg SC DAILY [facility] Last Admin: 05/24/17 09:44 Dose: 40 mg Hydromorphone/Sodium Chloride (Dilaudid Sample Finisher) 6 mg IV Q4H PRN; Protocol PRN Reason: Pain, moderate (4-7) Last Admin: 05/24/17 01:01 Dose: 6 mg Potassium Chloride/Dextrose/Sod Cl (Potassium Chl 20 Meq In D5-1/2ns) 1,000 mls @ 125 mls/hr IV .Q8H [facility] Last Admin: 05/22/17 00:10 Dose: Not Given Vancomycin/Sodium Chloride (Vancomycin 1 Gm/Ns 200 Ml) 1 gm in 200 mls @ 133.333 mls/hr IVPB Q12H [facility] Stop: 05/26/17 07:31 Last Admin: 05/24/17 07:52 Dose: 133.333 mls/hr Ceftriaxone Sodium (Rocephin Iv 1 Gm Duplex) 50 mls @ 100 mls/hr IVPB Q24H [facility] Last Admin: 05/24/17 06:15 Dose: 100 mls/hr Dextrose/Sodium Chloride (Dextrose 5%/0.45% Ns 1000 Ml) 1,000 mls @ 75 mls/hr IV .[id number] [facility] Last Admin: 05/24/17 01:19 Dose: 75 mls/hr Lisinopril (Zestril) 5 mg PO DAILY [facility] Last Admin: 05/24/17 10:01 Dose: 5 mg Metoprolol Tartrate (Lopressor) 25 mg PO BID [facility] Last Admin: 05/24/17 09:45 Dose: 25 mg Nicotine (Nicoderm Cq) 1 patch TD DAILY [facility] Last Admin: 05/24/17 09:45 Dose: 1 patch Pantoprazole Sodium (Protonix Inj) 40 mg IVP DAILY [facility] Last Admin: 05/24/17 09:50 Dose: 40 mg Potassium Chloride (K-Dur 20 Meq Er Tab) 20 meq PO Q4H [facility] Stop: 05/24/17 13:16 Last Admin: 05/24/17 10:01 Dose: 20 meq Senna/Docusate Sodium (Senokot S 50 Mg-8.6 Mg) 1 tab PO BID [facility] Last Admin: 05/24/17 10:03 Dose: 1 tab - Labs Labs: 05/24/17 07:35 05/24/17 07:35 PT 12.1 SECONDS (9.7-12.2) 05/21/17 03:38 INR 1.1 05/21/17 03:38 APTT 31 SECONDS (21-34) 05/21/17 03:38 - Additional Findings Additional findings: Obj: Musculoskekltal stance/gait- defrred R knee immobilizer intact N/V intact orthopedically stable no evidence for spesis/no evidence for thromboembolic disease
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
[2017-05-24] MEDS ORDERED: Metoprolol 1 mg/ml Inj IVP ONE (23:48)
--- NOTE | 2017-05-25 01:00 | CP.PCM.PN ---
Subjective - Date & Time of Evaluation Date of Evaluation: 05/24/17 Time of Evaluation: 22:00 - Subjective Subjective: in NSR had productive cough with green sputum on Abx wbc trending up Objective - Vital Signs/Intake and Output Vital Signs (last 24 hours): Temp Pulse Resp BP Pulse Ox 98.1 F 109 H 20 135/93 H 100 05/24/17 23:15 05/24/17 23:15 05/24/17 23:15 05/24/17 23:15 05/24/17 23:15 Intake and Output: 05/24/17 05/25/17 18:59 06:59 Output Total 950 Balance -950 - Medications Medications: Current Medications Amiodarone HCl (Cordarone) 200 mg PO BID [facility] Last Admin: 05/24/17 18:37 Dose: 200 mg Aspirin (Ecotrin) 81 mg PO DAILY [facility] Last Admin: 05/24/17 09:45 Dose: 81 mg Diltiazem HCl (Cardizem Cd) 120 mg PO DAILY [facility] Last Admin: 05/24/17 09:45 Dose: 120 mg Enoxaparin Sodium (Lovenox) 40 mg SC DAILY [facility] Last Admin: 05/24/17 09:44 Dose: 40 mg Hydromorphone/Sodium Chloride (Dilaudid Cuff Turner) 6 mg IV Q4H PRN; Protocol PRN Reason: Pain, moderate (4-7) Last Admin: 05/24/17 01:01 Dose: 6 mg Potassium Chloride/Dextrose/Sod Cl (Potassium Chl 20 Meq In D5-1/2ns) 1,000 mls @ 125 mls/hr IV .Q8H [facility] Last Admin: 05/22/17 00:10 Dose: Not Given Vancomycin/Sodium Chloride (Vancomycin 1 Gm/Ns 200 Ml) 1 gm in 200 mls @ 133.333 mls/hr IVPB Q12H [facility] Stop: 05/26/17 07:31 Last Admin: 05/24/17 18:39 Dose: 133.333 mls/hr Ceftriaxone Sodium (Rocephin Iv 1 Gm Duplex) 50 mls @ 100 mls/hr IVPB Q24H [facility] Last Admin: 05/24/17 06:15 Dose: 100 mls/hr Dextrose/Sodium Chloride (Dextrose 5%/0.45% Ns 1000 Ml) 1,000 mls @ 75 mls/hr IV .[id number] [facility] Last Admin: 05/24/17 14:35 Dose: Not Given Lisinopril (Zestril) 5 mg PO DAILY [facility] Last Admin: 05/24/17 10:01 Dose: 5 mg Metoprolol Tartrate (Lopressor) 25 mg PO BID [facility] Last Admin: 05/24/17 18:37 Dose: 25 mg Nicotine (Nicoderm Cq) 1 patch TD DAILY [facility] Last Admin: 05/24/17 09:45 Dose: 1 patch Pantoprazole Sodium (Protonix Inj) 40 mg IVP DAILY [facility] Last Admin: 05/24/17 09:50 Dose: 40 mg Senna/Docusate Sodium (Senokot S 50 Mg-8.6 Mg) 1 tab PO BID [facility] Last Admin: 05/24/17 18:37 Dose: 1 tab - Labs Labs: 05/24/17 07:35 05/24/17 07:35 PT 12.1 SECONDS (9.7-12.2) 05/21/17 03:38 INR 1.1 05/21/17 03:38 APTT 31 SECONDS (21-34) 05/21/17 03:38 - Constitutional Appears: Well - Head Exam Head Exam: ATRAUMATIC, NORMAL INSPECTION, NORMOCEPHALIC - Eye Exam Eye Exam: EOMI, Normal appearance, PERRL Pupil Exam: NORMAL ACCOMODATION, PERRL - ENT Exam ENT Exam: Mucous Membranes Moist, Normal Exam - Neck Exam Neck Exam: Full ROM, Normal Inspection. absent: Lymphadenopathy - Respiratory Exam Respiratory Exam: Clear to Ausculation Bilateral, NORMAL BREATHING PATTERN - Cardiovascular Exam Cardiovascular Exam: REGULAR RHYTHM, +S1, +S2. absent: Murmur - GI/Abdominal Exam GI & Abdominal Exam: Soft, Normal Bowel Sounds. absent: Tenderness - Extremities Exam Extremities Exam: Full ROM, Normal Capillary Refill, Normal Inspection. absent : Joint Swelling, Pedal Edema - Back Exam Back Exam: NORMAL INSPECTION - Neurological Exam Neurological Exam: Alert, Awake, CN II-XII Intact, Normal Gait, Oriented x3 - Psychiatric Exam Psychiatric exam: Normal Affect, Normal Mood - Skin Skin Exam: Dry, Intact, Normal Color, Warm Assessment and Plan (1) Atrial fibrillation Status: Acute (2) Preop cardiovascular exam Status: Acute (3) Chest wall contusion Status: Acute (4) SVT (supraventricular tachycardia) Status: Acute
[2017-05-25] MEDS: Dextrose 5%/0.45% NS 1,000 ML IV SCH ×2 (03:00→18:55)
[2017-05-25] MEDS: cefTRIAXone IV 1 gm in Dextros 50 ML IVPB SCH (06:15)
[2017-05-25 07:51] LABS: BASO # 0.1 K/uL (0.0-0.2); BASO % 0.9 % (0.0-2.0); EOS # 0.2 K/uL (0.0-0.7); EOS % 1.7 % (0.0-4.0); HEMATOCRIT 48.5 % (35.0-51.0); LYMPH # 2.1 K/uL (1.0-4.3); MEAN CELL VOLUME 92.2 fL (80.0-94.0); MEAN CORPUSCULAR HEMOGLOBIN 31.9 pg (27.0-31.0); MEAN CORPUSCULAR HGB CONC 34.6 g/dL (33.0-37.0); MEAN PLATELET VOLUME 8.9 fL (7.2-11.7); MONO # 0.7 K/uL (0.0-0.8); MONO % 7.6 % (0.0-10.0); NRBC % 0.2 % (0.0-2.0); RED CELL DISTRIBUTION WIDTH 14.2 % (11.5-14.5); WHITE BLOOD COUNT 9.7 K/uL (4.8-10.8)
[2017-05-25 08:00] LABS: ALB/GLOB RATIO 1.5 (1.0-2.1); ALKALINE PHOSPHATASE 85 U/L (38-126); ALT/SGPT 81 U/L (21-72); AST/SGOT 61 U/L (17-59); BILIRUBIN,TOTAL 1.2 mg/dL (0.2-1.3); BLOOD UREA NITROGEN 12 mg/dL (9-20); CALCIUM 8.4 mg/dl (8.6-10.4); CARBON DIOXIDE 24 mmol/L (22-30); CHLORIDE 98 mmol/L (98-107); GFR AFRICAN-AMERICAN > 60; GLUCOSE,RANDOM 95 mg/dL (75-110); PHOSPHOROUS 4.2 mg/dL (2.5-4.5); POTASSIUM 3.2 mmol/L (3.6-5.2); SODIUM 134 mmol/L (132-148); TOTAL PROTEIN 6.7 g/dL (6.3-8.3)
[2017-05-25] MEDS: Docusate-Senna 50 mg-8.6 mg Tab PO SCH ×2 (09:09→18:46)
[2017-05-25] MEDS: Enoxaparin 40 mg Syringe SC SCH (09:09)
[2017-05-25] MEDS: diltiaZEM 120 mg/24 Hours CD Cap PO SCH (09:12)
[2017-05-25] MEDS: Vancomycin 1 gm/NS 200 ml 1 GM/200 ML BAG IVPB SCH ×2 (09:14→18:49)
[2017-05-25] MEDS ORDERED: Potassium Chloride 20 mEq ER Tab PO ONE (09:15)
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
--- NOTE | 2017-05-25 09:51 | CP.PCM.PN ---
Subjective - Date & Time of Evaluation Date of Evaluation: 05/25/17 Time of Evaluation: 09:51 - Subjective Subjective: went overnight back to aflutter mild chest discomfort Objective - Vital Signs/Intake and Output Vital Signs (last 24 hours): Temp Pulse Resp BP Pulse Ox 97.7 F 109 H 18 137/100 H 100 05/25/17 08:10 05/25/17 08:10 05/25/17 08:10 05/25/17 09:18 05/25/17 08:10 Intake and Output: 05/25/17 05/25/17 06:59 18:59 Intake Total 600 Balance 600 - Medications Medications: Current Medications Amiodarone HCl (Cordarone) 200 mg PO BID [facility] Last Admin: 05/25/17 09:10 Dose: 200 mg Aspirin (Ecotrin) 81 mg PO DAILY [facility] Last Admin: 05/25/17 09:09 Dose: 81 mg Diltiazem HCl (Cardizem Cd) 120 mg PO DAILY [facility] Last Admin: 05/25/17 09:12 Dose: 120 mg Enoxaparin Sodium (Lovenox) 40 mg SC DAILY [facility] Last Admin: 05/25/17 09:09 Dose: 40 mg Hydromorphone/Sodium Chloride (Dilaudid Biochemistry Specialist) 6 mg IV Q4H PRN; Protocol PRN Reason: Pain, moderate (4-7) Last Admin: 05/24/17 01:01 Dose: 6 mg Potassium Chloride/Dextrose/Sod Cl (Potassium Chl 20 Meq In D5-1/2ns) 1,000 mls @ 125 mls/hr IV .Q8H [facility] Last Admin: 05/22/17 00:10 Dose: Not Given Vancomycin/Sodium Chloride (Vancomycin 1 Gm/Ns 200 Ml) 1 gm in 200 mls @ 133.333 mls/hr IVPB Q12H [facility] Stop: 05/26/17 07:31 Last Admin: 05/25/17 09:14 Dose: 133.333 mls/hr Ceftriaxone Sodium (Rocephin Iv 1 Gm Duplex) 50 mls @ 100 mls/hr IVPB Q24H [facility] Last Admin: 05/25/17 06:15 Dose: 100 mls/hr Dextrose/Sodium Chloride (Dextrose 5%/0.45% Ns 1000 Ml) 1,000 mls @ 75 mls/hr IV .[id number] [facility] Last Admin: 05/25/17 03:00 Dose: Not Given Lisinopril (Zestril) 5 mg PO DAILY [facility] Last Admin: 05/25/17 09:09 Dose: 5 mg Metoprolol Tartrate (Lopressor) 25 mg PO BID [facility] Last Admin: 05/25/17 09:18 Dose: 25 mg Nicotine (Nicoderm Cq) 1 patch TD DAILY [facility] Last Admin: 05/25/17 09:08 Dose: 1 patch Pantoprazole Sodium (Protonix Inj) 40 mg IVP DAILY [facility] Last Admin: 05/25/17 09:08 Dose: 40 mg Senna/Docusate Sodium (Senokot S 50 Mg-8.6 Mg) 1 tab PO BID [facility] Last Admin: 05/25/17 09:09 Dose: 1 tab - Labs Labs: 05/25/17 06:59 05/25/17 06:59 PT 12.1 SECONDS (9.7-12.2) 05/21/17 03:38 INR 1.1 05/21/17 03:38 APTT 31 SECONDS (21-34) 05/21/17 03:38 - Constitutional Appears: Well - Head Exam Head Exam: ATRAUMATIC, NORMAL INSPECTION, NORMOCEPHALIC - Eye Exam Eye Exam: EOMI, Normal appearance, PERRL Pupil Exam: NORMAL ACCOMODATION, PERRL - ENT Exam ENT Exam: Mucous Membranes Moist, Normal Exam - Neck Exam Neck Exam: Full ROM, Normal Inspection. absent: Lymphadenopathy - Respiratory Exam Respiratory Exam: Clear to Ausculation Bilateral, NORMAL BREATHING PATTERN - Cardiovascular Exam Cardiovascular Exam: Tachycardia, Irregular Rhythm, +S1, +S2. absent: Murmur - GI/Abdominal Exam GI & Abdominal Exam: Soft, Normal Bowel Sounds. absent: Tenderness - Extremities Exam Extremities Exam: Full ROM, Normal Capillary Refill, Normal Inspection. absent : Joint Swelling, Pedal Edema - Back Exam Back Exam: NORMAL INSPECTION - Neurological Exam Neurological Exam: Alert, Awake, CN II-XII Intact, Normal Gait, Oriented x3 - Psychiatric Exam Psychiatric exam: Normal Affect, Normal Mood - Skin Skin Exam: Dry, Intact, Normal Color, Warm Assessment and Plan (1) Atrial fibrillation Assessment & Plan: in aflutter overnight given 1 dose of IV amiodarone increase dose of amiodarone to 400mg po bid dc lisinopril cont cardizem and metoprolol Status: Acute (2) Preop cardiovascular exam Assessment & Plan: stable post op Status: Acute (3) Chest wall contusion Status: Acute (4) SVT (supraventricular tachycardia) Status: Acute
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
[2017-05-25] MEDS ORDERED: HYDROmorphone 0.5 mg/0.5 ml ISec IVP PRN (13:50)
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
--- NOTE | 2017-05-25 17:23 | CARD ---
APPROVED REPORT EKG Measurement Heart [id number] <Conclusion> Sinus tachycardia with premature atrial complexes T wave abnormality, nonspecific. Abnormal ECG
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
[2017-05-26] MEDS: Oxycodone/Acetaminophen 5/325 mg Tab PO PRN (04:26)
[2017-05-26] MEDS: Dextrose 5%/0.45% NS 1,000 ML IV SCH (06:35)
[2017-05-26] MEDS: cefTRIAXone IV 1 gm in Dextros 50 ML IVPB SCH (06:36)
[2017-05-26 06:51] LABS: BASO # 0.1 K/uL (0.0-0.2); BASO % 0.8 % (0.0-2.0); EOS # 0.3 K/uL (0.0-0.7); EOS % 2.6 % (0.0-4.0); HEMATOCRIT 47.2 % (35.0-51.0); LYMPH # 1.8 K/uL (1.0-4.3); LYMPH % 18.5 % (20.0-40.0); MEAN CELL VOLUME 91.5 fL (80.0-94.0); MEAN CORPUSCULAR HEMOGLOBIN 32.1 pg (27.0-31.0); MEAN CORPUSCULAR HGB CONC 35.1 g/dL (33.0-37.0); MEAN PLATELET VOLUME 8.4 fL (7.2-11.7); MONO # 0.7 K/uL (0.0-0.8); MONO % 7.2 % (0.0-10.0); NRBC % 0.3 % (0.0-2.0); RED CELL DISTRIBUTION WIDTH 14.1 % (11.5-14.5); WHITE BLOOD COUNT 9.8 K/uL (4.8-10.8)
[2017-05-26 07:13] LABS: ALB/GLOB RATIO 1.1 (1.0-2.1); ALKALINE PHOSPHATASE 107 U/L (38-126); ALT/SGPT 99 U/L (21-72); AST/SGOT 72 U/L (17-59); BLOOD UREA NITROGEN 12 mg/dL (9-20); CALCIUM 8.1 mg/dl (8.6-10.4); CARBON DIOXIDE 25 mmol/L (22-30); CHLORIDE 100 mmol/L (98-107); GFR AFRICAN-AMERICAN > 60; GLUCOSE,RANDOM 100 mg/dL (75-110); MAGNESIUM 1.9 mg/dL (1.6-2.3); PHOSPHOROUS 4.2 mg/dL (2.5-4.5); POTASSIUM 3.3 mmol/L (3.6-5.2); SODIUM 134 mmol/L (132-148); TOTAL PROTEIN 7.3 g/dL (6.3-8.3)
[2017-05-26] MEDS: Vancomycin 1 gm/NS 200 ml 1 GM/200 ML BAG IVPB SCH (08:10)
[2017-05-26] MEDS: Docusate-Senna 50 mg-8.6 mg Tab PO SCH ×2 (09:43→17:38)
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
[2017-05-26] MEDS ORDERED: Potassium Chloride 20 mEq ER Tab PO ONE (09:46)
[2017-05-26] MEDS: Enoxaparin 40 mg Syringe SC SCH (09:48)
[2017-05-26] MEDS ORDERED: diltiaZEM 120 mg/24 Hours CD Cap PO SCH (10:00)
--- NOTE | 2017-05-26 13:49 | CP.PCM.PN ---
Subjective - Date & Time of Evaluation Date of Evaluation: 05/26/17 Time of Evaluation: 13:46 - Subjective Subjective: Patient states pain is improving. Objective - Vital Signs/Intake and Output Vital Signs (last 24 hours): Temp Pulse Resp BP Pulse Ox 97.9 F 112 H 20 113/81 98 05/26/17 08:32 05/26/17 12:32 05/26/17 08:32 05/26/17 09:43 05/26/17 08:32 Intake and Output: 05/26/17 05/26/17 06:59 18:59 Intake Total 1780 Balance 1780 - Medications Medications: Current Medications Amiodarone HCl (Cordarone) 200 mg PO BID [facility] Last Admin: 05/26/17 09:43 Dose: 200 mg Aspirin (Ecotrin) 81 mg PO DAILY [facility] Last Admin: 05/26/17 09:43 Dose: 81 mg Diltiazem HCl (Cardizem Cd) 300 mg PO DAILY [facility] Enoxaparin Sodium (Lovenox) 40 mg SC DAILY [facility] Last Admin: 05/26/17 09:48 Dose: 40 mg Famotidine (Pepcid) 20 mg PO DAILY [facility] Lisinopril (Zestril) 5 mg PO DAILY [facility] Last Admin: 05/26/17 09:44 Dose: 5 mg Metoprolol Tartrate (Lopressor) 25 mg PO BID [facility] Last Admin: 05/26/17 09:43 Dose: 25 mg Nicotine (Nicoderm Cq) 1 patch TD DAILY [facility] Last Admin: 05/26/17 09:47 Dose: 1 patch Oxycodone/Acetaminophen (Percocet 5/325 Mg Tab) 2 tab PO Q4H PRN PRN Reason: Pain, moderate (4-7) Stop: 05/28/17 13:51 Last Admin: 05/26/17 04:26 Dose: 2 tab Senna/Docusate Sodium (Senokot S 50 Mg-8.6 Mg) 1 tab PO BID [facility] Last Admin: 05/26/17 09:43 Dose: 1 tab - Labs Labs: 05/26/17 06:36 05/26/17 06:36 PT 12.1 SECONDS (9.7-12.2) 05/21/17 03:38 INR 1.1 05/21/17 03:38 APTT 31 SECONDS (21-34) 05/21/17 03:38 - Extremities Exam Additional comments: Right knee: no change in erythema mild near open site. rest of incision dry/ intact, no erythema. +ROM ankle/toes, sensaiton intact +DP/PT pulses calves soft Nt neg homans knee immob intact PT notes appreciated Assessment and Plan (1) Open patellar fracture Assessment & Plan: POD# 5 cont abx as per [facility] ortho stable for transfer cont PT, cont knee immob d/w Dr. Tapia, agrees with above Status: Acute (2) Traumatic rupture of right quadriceps tendon Status: Acute
[2017-05-26 15:07] LABS: CHOLESTEROL 160 mg/dL (0-199)
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
[2017-05-27] MEDS: Oxycodone/Acetaminophen 5/325 mg Tab PO PRN (05:41)
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
[2017-05-27 07:18] LABS: ALB/GLOB RATIO 1.1 (1.0-2.1); ALKALINE PHOSPHATASE 96 U/L (38-126); ALT/SGPT 128 U/L (21-72); AST/SGOT 73 U/L (17-59); BILIRUBIN,TOTAL 1.2 mg/dL (0.2-1.3); BLOOD UREA NITROGEN 14 mg/dL (9-20); CALCIUM 8.5 mg/dl (8.6-10.4); CARBON DIOXIDE 25 mmol/L (22-30); CHLORIDE 98 mmol/L (98-107); GFR AFRICAN-AMERICAN > 60; GLUCOSE,RANDOM 89 mg/dL (75-110); PHOSPHOROUS 3.2 mg/dL (2.5-4.5); POTASSIUM 3.3 mmol/L (3.6-5.2); SODIUM 135 mmol/L (132-148); TOTAL PROTEIN 7.8 g/dL (6.3-8.3)
[2017-05-27 07:27] LABS: BASO % 0.4 % (0.0-2.0); EOS # 0.3 K/uL (0.0-0.7); EOS % 2.3 % (0.0-4.0); HEMATOCRIT 49.3 % (35.0-51.0); LYMPH # 2.2 K/uL (1.0-4.3); LYMPH % 18.5 % (20.0-40.0); MEAN CELL VOLUME 91.7 fL (80.0-94.0); MEAN CORPUSCULAR HEMOGLOBIN 31.7 pg (27.0-31.0); MEAN CORPUSCULAR HGB CONC 34.6 g/dL (33.0-37.0); MONO % 8.3 % (0.0-10.0); NRBC % 0.1 % (0.0-2.0); RED CELL DISTRIBUTION WIDTH 14.5 % (11.5-14.5); WHITE BLOOD COUNT 11.7 K/uL (4.8-10.8)
[2017-05-27] MEDS ORDERED: Potassium Chloride 20 mEq ER Tab PO ONE (09:00)
[2017-05-27] MEDS: Enoxaparin 40 mg Syringe SC SCH (09:15)
[2017-05-27] MEDS: diltiaZEM 300 mg/24 Hours CD Cap PO SCH (09:15)
[2017-05-27] MEDS: Docusate-Senna 50 mg-8.6 mg Tab PO SCH ×2 (09:16→17:25)
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
--- NOTE | 2017-05-27 15:56 | CARD ---
APPROVED REPORT EXAM: Transesophageal echocardiogram with color flow Doppler and Synchronized Cardioversion w/bubble. INDICATION ICD: 427.31 Atrial Fibrillation Chest Pain Triscupid Valve Disease Cardioversion Reason For Test : cardioversion for atrial fibrillation PROCEDURE After obtaining informed consent, patient underwent transesophageal echo in the ICU/CCU. Type of Sedation : Conscious Sedation Sedation was provided by anesthesiologist. Sedation was achieved with intravenously. Transesophageal probe was inserted and advanced into esophagus without difficulty. Echo enhancement indication: R/O Septal defect. Echo enhancement agent administered: Agitated Saline The AILEEN was performed without complications. Synchronized Cardioversion attempted: Successful Synchronized Cardioversion acheived with 200 Joules after 3 attempt(s). Rhythm following Synchronized Cardioversion: Normal Sinus Rhythm Throughout the procedure, the blood pressure, pulse oximetry, cardiac rhythm, and rate were monitored. The patient tolerated the procedure without adverse effects. Recovery from conscious sedation was uneventful and vital signs were stable. LEFT VENTRICLE The left ventricle is normal size. There is normal left ventricular wall thickness. The left ventricular function is normal. The left ventricular ejection fraction is within the normal range. The Ejection Fraction is 60-65%. There is normal LV segmental wall motion. The left ventricular diastolic function is normal. No left ventricle thrombus noted on this study. There is no ventricular septal defect visualized. There is no left ventricular aneurysm. RIGHT VENTRICLE The right ventricle is normal size. There is normal right ventricular wall thickness. The right ventricular systolic function is normal. ATRIA The left atrium is mildly dilated. The right atrium size is normal. The interatrial septum is intact with no evidence for an atrial septal defect. AORTIC VALVE The aortic valve is normal in structure. No aortic regurgitation is present. There is no aortic valvular stenosis. There is no aortic valvular vegetation. MITRAL VALVE The mitral valve is normal in structure. There is no evidence of mitral valve prolapse. There is no mitral valve stenosis. Mitral regurgitation is trace to mild. TRICUSPID VALVE The tricuspid valve is normal in structure. There is trace to mild tricuspid regurgitation. There is no tricuspid valve prolapse or vegetation. There is no tricuspid valve stenosis. PULMONIC VALVE The pulmonary valve is normal in structure. There is no pulmonic valvular regurgitation. There is no pulmonic valvular stenosis. GREAT VESSELS The aortic root is normal in size. The ascending aorta is normal in size. The pulmonary artery is normal. The IVC is normal in size and collapses >50% with inspiration. PERICARDIAL EFFUSION There is no pericardial effusion. There is no pleural effusion. <Conclusion> The left ventricular function is normal. The left ventricular ejection fraction is within the normal range. The Ejection Fraction is 60-65%. Mitral regurgitation is trace to mild.
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
[2017-05-28 06:41] LABS: BASO # 0.1 K/uL (0.0-0.2); BASO % 0.9 % (0.0-2.0); EOS # 0.3 K/uL (0.0-0.7); HEMATOCRIT 48.3 % (35.0-51.0); LYMPH % 19.9 % (20.0-40.0); MEAN CELL VOLUME 91.8 fL (80.0-94.0); MEAN CORPUSCULAR HGB CONC 34.8 g/dL (33.0-37.0); MEAN PLATELET VOLUME 8.5 fL (7.2-11.7); MONO # 0.9 K/uL (0.0-0.8); RED CELL DISTRIBUTION WIDTH 14.2 % (11.5-14.5)
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
--- NOTE | 2017-05-28 07:26 | CP.PCM.PN ---
Objective - Vital Signs/Intake and Output Vital Signs (last 24 hours): Temp Pulse Resp BP Pulse Ox 98.1 F 96 H 20 123/74 99 05/27/17 23:15 05/28/17 03:50 05/27/17 23:15 05/27/17 23:15 05/27/17 23:15 Intake and Output: 05/28/17 05/28/17 06:59 18:59 Intake Total 420 Balance 420 - Medications Medications: Current Medications Amiodarone HCl (Cordarone) 400 mg PO BID [facility] Last Admin: 05/27/17 17:25 Dose: 400 mg Aspirin (Ecotrin) 81 mg PO DAILY [facility] Last Admin: 05/27/17 09:16 Dose: 81 mg Diltiazem HCl (Cardizem Cd) 300 mg PO DAILY [facility] Last Admin: 05/27/17 09:15 Dose: 300 mg Enoxaparin Sodium (Lovenox) 40 mg SC DAILY [facility] Last Admin: 05/27/17 09:15 Dose: 40 mg Famotidine (Pepcid) 20 mg PO DAILY [facility] Last Admin: 05/27/17 09:16 Dose: 20 mg Metoprolol Tartrate (Lopressor) 50 mg PO BID [facility] Last Admin: 05/27/17 17:25 Dose: 50 mg Nicotine (Nicoderm Cq) 1 patch TD DAILY [facility] Last Admin: 05/27/17 09:14 Dose: 1 patch Oxycodone/Acetaminophen (Percocet 5/325 Mg Tab) 2 tab PO Q4H PRN PRN Reason: Pain, moderate (4-7) Stop: 05/28/17 13:51 Last Admin: 05/27/17 05:41 Dose: 2 tab Senna/Docusate Sodium (Senokot S 50 Mg-8.6 Mg) 1 tab PO BID [facility] Last Admin: 05/27/17 17:25 Dose: 1 tab - Labs Labs: 05/28/17 06:29 05/27/17 06:38 PT 12.1 SECONDS (9.7-12.2) 05/21/17 03:38 INR 1.1 05/21/17 03:38 APTT 31 SECONDS (21-34) 05/21/17 03:38
[2017-05-28 07:57] LABS: ALB/GLOB RATIO 1.5 (1.0-2.1); ALKALINE PHOSPHATASE 84 U/L (38-126); ALT/SGPT 126 U/L (21-72); AST/SGOT 83 U/L (17-59); BILIRUBIN,TOTAL 1.5 mg/dL (0.2-1.3); BLOOD UREA NITROGEN 17 mg/dL (9-20); CALCIUM 8.7 mg/dl (8.6-10.4); CARBON DIOXIDE 24 mmol/L (22-30); CHLORIDE 98 mmol/L (98-107); GFR AFRICAN-AMERICAN > 60; GLUCOSE,RANDOM 101 mg/dL (75-110); PHOSPHOROUS 2.9 mg/dL (2.5-4.5); POTASSIUM 3.9 mmol/L (3.6-5.2); SODIUM 134 mmol/L (132-148)
[2017-05-28] MEDS: Docusate-Senna 50 mg-8.6 mg Tab PO SCH ×2 (10:12→17:21)
[2017-05-28] MEDS: Enoxaparin 40 mg Syringe SC SCH (10:13)
[2017-05-28] MEDS: diltiaZEM 300 mg/24 Hours CD Cap PO SCH (10:13)
[2017-05-28] MEDS: Oxycodone/Acetaminophen 5/325 mg Tab PO PRN (13:04)
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
[2017-05-29 07:42] LABS: BASO # 0.1 K/uL (0.0-0.2); EOS # 0.3 K/uL (0.0-0.7); EOS % 3.4 % (0.0-4.0); HEMATOCRIT 45.4 % (35.0-51.0); LYMPH # 1.8 K/uL (1.0-4.3); LYMPH % 18.9 % (20.0-40.0); MEAN CELL VOLUME 92.3 fL (80.0-94.0); MEAN CORPUSCULAR HEMOGLOBIN 31.9 pg (27.0-31.0); MEAN CORPUSCULAR HGB CONC 34.6 g/dL (33.0-37.0); MONO # 0.9 K/uL (0.0-0.8); MONO % 9.8 % (0.0-10.0); NRBC % 0.2 % (0.0-2.0); RED CELL DISTRIBUTION WIDTH 14.2 % (11.5-14.5); WHITE BLOOD COUNT 9.3 K/uL (4.8-10.8)
[2017-05-29 08:20] LABS: ALB/GLOB RATIO 1.5 (1.0-2.1); ALKALINE PHOSPHATASE 100 U/L (38-126); ALT/SGPT 125 U/L (21-72); AST/SGOT 71 U/L (17-59); BLOOD UREA NITROGEN 21 mg/dL (9-20); CALCIUM 8.3 mg/dl (8.6-10.4); CARBON DIOXIDE 26 mmol/L (22-30); CHLORIDE 96 mmol/L (98-107); GFR AFRICAN-AMERICAN > 60; GLUCOSE,RANDOM 86 mg/dL (75-110); PHOSPHOROUS 3.1 mg/dL (2.5-4.5); POTASSIUM 3.8 mmol/L (3.6-5.2); SODIUM 133 mmol/L (132-148); TOTAL PROTEIN 6.6 g/dL (6.3-8.3)
[2017-05-29] MEDS: diltiaZEM 300 mg/24 Hours CD Cap PO SCH (09:30)
[2017-05-29] MEDS: Docusate-Senna 50 mg-8.6 mg Tab PO SCH ×2 (09:30→17:50)
[2017-05-29] MEDS: Enoxaparin 40 mg Syringe SC SCH (09:32)
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
--- NOTE | 2017-05-29 13:00 | CT ---
PROCEDURE: CT scan of the brain dated on 10/23/2016 HISTORY: Headache. COMPARISON: No prior study available for comparison TECHNIQUE: Axial computed tomography images were obtained through the head/brain without intravenous contrast. Radiation dose: Total exam DLP = 929.52 mGy-cm. This CT exam was performed using one or more of the following dose reduction techniques: Automated exposure control, adjustment of the mA and/or kV according to patient size, and/or use of iterative reconstruction technique. FINDINGS: HEMORRHAGE: No acute parenchymal, subarachnoid or extra-axial hemorrhage. Hemorrhage. BRAIN: No evidence of large acute infarct. No obvious parenchymal nor extra-axial mass or collection seen on this noncontrast study. Very mild sulcal enlargement in the frontoparietal regions. VENTRICLES: No obstructive hydrocephalus. CALVARIUM: No acute calvarial PARANASAL SINUSES: Unremarkable as visualized. No significant inflammatory changes. MASTOID AIR CELLS: Unremarkable as visualized. No inflammatory changes. OTHER FINDINGS: None. IMPRESSION: No acute intracranial hemorrhage or large acute infarcts seen. . No obvious parenchymal nor extra-axial masses or collections.
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
[2017-05-30] MEDS: Docusate-Senna 50 mg-8.6 mg Tab PO SCH ×2 (09:25→17:21)
[2017-05-30] MEDS: diltiaZEM 300 mg/24 Hours CD Cap PO SCH (09:26)
[2017-05-30] MEDS: Enoxaparin 40 mg Syringe SC SCH (09:29)
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
[2017-05-31] MEDS: Enoxaparin 40 mg Syringe SC SCH (09:20)
[2017-05-31] MEDS: diltiaZEM 300 mg/24 Hours CD Cap PO SCH (09:21)
[2017-05-31] MEDS: Docusate-Senna 50 mg-8.6 mg Tab PO SCH ×2 (09:23→19:21)
--- NOTE | 2017-05-31 12:10 | CP.PCM.PN ---
Subjective - Date & Time of Evaluation Date of Evaluation: 05/31/17 Time of Evaluation: 12:05 - Subjective Subjective: S- pt with minimaol post op discomfort/agagin, complaining of heart palpitations Objective - Vital Signs/Intake and Output Vital Signs (last 24 hours): Temp Pulse Resp BP Pulse Ox 97.1 F L 50 L 20 129/83 98 05/31/17 09:08 05/31/17 09:08 05/31/17 09:08 05/31/17 09:08 05/31/17 09:08 - Medications Medications: Current Medications Amiodarone HCl (Cordarone) 400 mg PO BID [facility] Last Admin: 05/31/17 09:21 Dose: 400 mg Aspirin (Ecotrin) 81 mg PO DAILY [facility] Last Admin: 05/31/17 09:21 Dose: 81 mg Diltiazem HCl (Cardizem Cd) 300 mg PO DAILY [facility] Last Admin: 05/31/17 09:21 Dose: 300 mg Enoxaparin Sodium (Lovenox) 40 mg SC DAILY [facility] Last Admin: 05/31/17 09:20 Dose: 40 mg Famotidine (Pepcid) 20 mg PO DAILY [facility] Last Admin: 05/31/17 09:22 Dose: 20 mg Metoprolol Tartrate (Lopressor) 75 mg PO BID [facility] Last Admin: 05/31/17 09:23 Dose: Not Given Nicotine (Nicoderm Cq) 1 patch TD DAILY [facility] Last Admin: 05/31/17 09:20 Dose: Not Given Senna/Docusate Sodium (Senokot S 50 Mg-8.6 Mg) 1 tab PO BID [facility] Last Admin: 05/31/17 09:23 Dose: 1 tab - Labs Labs: 05/29/17 06:58 05/29/17 06:58 PT 12.1 SECONDS (9.7-12.2) 05/21/17 03:38 INR 1.1 05/21/17 03:38 APTT 31 SECONDS (21-34) 05/21/17 03:38 - Additional Findings Additional findings: Objective systemic- pt stil;l with bouts mof "palpitatiuons" remainder systemic exam wnl Musculoskektlal stance/gait- defrred R knee immobilizer intact N/V intact orthopedically stable Continue physion STRICT TOE TOUCH WEIGTH BEARING WITH CRUTCHES
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
[2017-06-01 07:58] LABS: BASO # 0.1 K/uL (0.0-0.2); BASO % 0.7 % (0.0-2.0); EOS # 0.2 K/uL (0.0-0.7); EOS % 1.8 % (0.0-4.0); HEMATOCRIT 35.3 % (35.0-51.0); LYMPH # 2.4 K/uL (1.0-4.3); LYMPH % 21.2 % (20.0-40.0); MEAN CORPUSCULAR HEMOGLOBIN 31.7 pg (27.0-31.0); MEAN CORPUSCULAR HGB CONC 35.2 g/dL (33.0-37.0); MEAN PLATELET VOLUME 9.1 fL (7.2-11.7); MONO # 0.9 K/uL (0.0-0.8); MONO % 8.3 % (0.0-10.0); RED CELL DISTRIBUTION WIDTH 13.7 % (11.5-14.5); WHITE BLOOD COUNT 11.1 K/uL (4.8-10.8)
[2017-06-01 08:17] LABS: ALB/GLOB RATIO 1.5 (1.0-2.1); ALKALINE PHOSPHATASE 114 U/L (38-126); ALT/SGPT 167 U/L (21-72); AST/SGOT 97 U/L (17-59); BILIRUBIN,TOTAL 1.2 mg/dL (0.2-1.3); BLOOD UREA NITROGEN 11 mg/dL (9-20); CALCIUM 8.7 mg/dl (8.6-10.4); CARBON DIOXIDE 22 mmol/L (22-30); CHLORIDE 101 mmol/L (98-107); GFR AFRICAN-AMERICAN > 60; GLUCOSE,RANDOM 83 mg/dL (75-110); MAGNESIUM 1.9 mg/dL (1.6-2.3); PHOSPHOROUS 3.5 mg/dL (2.5-4.5); POTASSIUM 3.6 mmol/L (3.6-5.2); SODIUM 133 mmol/L (132-148); TOTAL PROTEIN 6.3 g/dL (6.3-8.3)
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
[2017-06-01] MEDS: Docusate-Senna 50 mg-8.6 mg Tab PO SCH ×2 (09:49→17:48)
[2017-06-01] MEDS: diltiaZEM 300 mg/24 Hours CD Cap PO SCH (09:49)
[2017-06-01] MEDS: Enoxaparin 40 mg Syringe SC SCH (09:49)
--- NOTE | 2017-06-01 11:16 | CP.PCM.PN ---
Subjective - Date & Time of Evaluation Date of Evaluation: 06/01/17 Time of Evaluation: 11:13 - Subjective Subjective: Patient tolerating PT well. Doing stairs training today. NPO for stress test. Objective - Vital Signs/Intake and Output Vital Signs (last 24 hours): Temp Pulse Resp BP Pulse Ox 98.1 F 58 L 18 124/80 98 06/01/17 07:30 06/01/17 10:49 06/01/17 07:30 06/01/17 07:30 06/01/17 07:30 Intake and Output: 06/01/17 06/01/17 06:59 18:59 Intake Total 320 Output Total 500 Balance -180 - Medications Medications: Current Medications Amiodarone HCl (Cordarone) 200 mg PO BID [facility] Last Admin: 06/01/17 09:48 Dose: 200 mg Aspirin (Ecotrin) 81 mg PO DAILY [facility] Last Admin: 06/01/17 09:48 Dose: 81 mg Diltiazem HCl (Cardizem Cd) 300 mg PO DAILY [facility] Last Admin: 06/01/17 09:49 Dose: 300 mg Enoxaparin Sodium (Lovenox) 40 mg SC DAILY [facility] Last Admin: 06/01/17 09:49 Dose: 40 mg Famotidine (Pepcid) 20 mg PO DAILY [facility] Last Admin: 06/01/17 09:49 Dose: 20 mg Metoprolol Tartrate (Lopressor) 50 mg PO BID [facility] Last Admin: 06/01/17 09:49 Dose: 50 mg Nicotine (Nicoderm Cq) 1 patch TD DAILY [facility] Last Admin: 06/01/17 09:50 Dose: Not Given Senna/Docusate Sodium (Senokot S 50 Mg-8.6 Mg) 1 tab PO BID [facility] Last Admin: 06/01/17 09:49 Dose: 1 tab - Labs Labs: 06/01/17 06:10 06/01/17 06:10 PT 12.1 SECONDS (9.7-12.2) 05/21/17 03:38 INR 1.1 05/21/17 03:38 APTT 31 SECONDS (21-34) 05/21/17 03:38 - Extremities Exam Additional comments: dressing changed. Incision intact, dry, no erythema. Calves soft NT neg homans + DP/PT Pulses, +ROM ankle/toes, sensation intact Assessment and Plan (1) Open patellar fracture Assessment & Plan: POD#11 s/p quad tendon repair/ID&D -cont PT, d/c planning -orthopedically stable -VTE proph -f/u Dr. Tapia approx 10 days, call for appointment -d/w Dr. Tapia, agrees with above Status: Acute (2) Traumatic rupture of right quadriceps tendon Status: Acute
--- NOTE | 2017-06-02 07:57 | CP.PCM.DIS ---
Provider - Provider Date of Admission: 05/21/17 05:32 Attending physician: Clarke Mas MD Hospital Course - Lab Results Lab Results: Micro Results 05/23/17 09:30 Blood Blood Culture - Final NO GROWTH AFTER 5 DAYS 05/23/17 09:30 Blood Gram Stain - Final TEST NOT PERFORMED 05/23/17 09:00 Blood Blood Culture - Final NO GROWTH AFTER 5 DAYS 05/23/17 09:00 Blood Gram Stain - Final TEST NOT PERFORMED 05/21/17 19:30 Knee - Right Gram Stain - Final 05/21/17 19:30 Knee - Right Wound Culture - Final No growth. 05/21/17 19:30 Knee - Right Gram Stain - Final 05/21/17 19:30 Knee - Right Wound Culture - Final No growth. 05/23/17 Unknown Urine Urine Culture - Final No Growth (<1,000 CFU/ML) 05/21/17 15:00 Naris MRSA Culture (Admit) - Final MRSA NOT DETECTED Most Recent Lab Values WBC 11.1 K/uL (4.8-10.8) H 06/01/17 06:10 RBC 3.92 Mil/uL (4.40-5.90) L 06/01/17 06:10 Hgb 12.4 g/dL (12.0-18.0) D 06/01/17 06:10 Hct 35.3 % (35.0-51.0) 06/01/17 06:10 MCV 90.0 fL (80.0-94.0) D 06/01/17 06:10 MCH 31.7 pg (27.0-31.0) H 06/01/17 06:10 MCHC 35.2 g/dL (33.0-37.0) 06/01/17 06:10 RDW 13.7 % (11.5-14.5) 06/01/17 06:10 Plt Count 324 K/uL (130-400) 06/01/17 06:10 MPV 9.1 fL (7.2-11.7) 06/01/17 06:10 Neut % (Auto) 68.0 % (50.0-75.0) 06/01/17 06:10 Lymph % (Auto) 21.2 % (20.0-40.0) 06/01/17 06:10 [place] % (Auto) 8.3 % (0.0-10.0) 06/01/17 06:10 Eos % (Auto) 1.8 % (0.0-4.0) 06/01/17 06:10 Baso % (Auto) 0.7 % (0.0-2.0) 06/01/17 06:10 Neut # 7.6 K/uL (1.8-7.0) H 06/01/17 06:10 Lymph # 2.4 K/uL (1.0-4.3) 06/01/17 06:10 [place] # 0.9 K/uL (0.0-0.8) H 06/01/17 06:10 Eos # 0.2 K/uL (0.0-0.7) 06/01/17 06:10 Baso # 0.1 K/uL (0.0-0.2) 06/01/17 06:10 Neutrophils % (Manual) 89 % (50-75) H 05/23/17 06:27 Band Neutrophils % 2 % (0-2) 05/23/17 06:27 Lymphocytes % (Manual) 3 % (20-40) L 05/23/17 06:27 Monocytes % (Manual) 6 % (0-10) 05/23/17 06:27 Platelet Estimate Normal (NORMAL) 05/23/17 06:27 Large Platelets Present 05/23/17 06:27 Giant Platelets Present 05/23/17 06:27 Anisocytosis (manual) Slight 05/23/17 06:27 PT 12.1 SECONDS (9.7-12.2) 05/21/17 03:38 INR 1.1 05/21/17 03:38 APTT 31 SECONDS (21-34) 05/21/17 03:38 D-Dimer, Quantitative 1083 ng/mlDDU (0-243) H 05/21/17 05:51 Sodium 133 mmol/L (132-148) 06/01/17 06:10 Potassium 3.6 mmol/L (3.6-5.2) 06/01/17 06:10 Chloride 101 mmol/L (98-107) 06/01/17 06:10 Carbon Dioxide 22 mmol/L (22-30) 06/01/17 06:10 Anion Gap 14 (10-20) 06/01/17 06:10 BUN 11 mg/dL (9-20) 06/01/17 06:10 Creatinine 0.7 mg/dL (0.8-1.5) L 06/01/17 06:10 Est GFR ( Amer) > 60 06/01/17 06:10 Est GFR (Non-Af Amer) > 60 06/01/17 06:10 POC Glucose (mg/dL) 97 mg/dL (65-110) 05/27/17 11:08 Random Glucose 83 mg/dL (75-110) 06/01/17 06:10 Hemoglobin A1c 5.1 % (4.2-6.5) 05/26/17 14:37 Calcium 8.7 mg/dl (8.6-10.4) 06/01/17 06:10 Phosphorus 3.5 mg/dL (2.5-4.5) 06/01/17 06:10 Magnesium 1.9 mg/dL (1.6-2.3) 06/01/17 06:10 Total Bilirubin 1.2 mg/dL (0.2-1.3) 06/01/17 06:10 AST 97 U/L (17-59) H D 06/01/17 06:10 ALT 167 U/L (21-72) H D 06/01/17 06:10 Alkaline Phosphatase 114 U/L (38-126) 06/01/17 06:10 Total Creatine Kinase 874 U/L (55-170) H 05/21/17 15:07 CK-MB (Mass) 2.56 ng/mL (0.0-3.38) 05/21/17 15:07 Troponin I < 0.0120 ng/mL (0.00-0.120) 05/21/17 09:42 Troponin I, Quant < 0.0120 ng/mL (0.00-0.120) 05/21/17 15:07 NT-Pro-B Natriuret Pep 176 pg/mL (0-450) 05/21/17 09:42 Total Protein 6.3 g/dL (6.3-8.3) 06/01/17 06:10 Albumin 3.8 g/dL (3.5-5.0) 06/01/17 06:10 Globulin 2.5 gm/dL (2.2-3.9) 06/01/17 06:10 Albumin/Globulin Ratio 1.5 (1.0-2.1) 06/01/17 06:10 Triglycerides 102 mg/dL (0-149) 05/26/17 06:36 Cholesterol 160 mg/dL (0-199) 05/26/17 06:36 LDL Cholesterol Direct 127 mg/dL (0-129) 05/26/17 06:36 HDL Cholesterol 35 mg/dL (30-70) 05/26/17 06:36 TSH 3rd Generation 2.72 mIU/L (0.46-4.68) 05/21/17 09:42 Vancomycin Trough 5.7 ug/mL (5.0-10.0) 05/25/17 06:59 Urine Opiates Screen Positive (NEGATIVE) H 05/21/17 12:18 Urine Methadone Screen Negative (NEGATIVE) 05/21/17 12:18 Ur Barbiturates Screen Negative (NEGATIVE) 05/21/17 12:18 Ur Phencyclidine Scrn Negative (NEGATIVE) 05/21/17 12:18 Ur Amphetamines Screen Negative (NEGATIVE) 05/21/17 12:18 U Benzodiazepines Scrn Negative (NEGATIVE) 05/21/17 12:18 U Oth Cocaine Metabols Negative (NEGATIVE) 05/21/17 12:18 U Cannabinoids Screen Negative (NEGATIVE) 05/21/17 12:18 Alcohol, Quantitative 233 mg/dl (0-10) H 05/21/17 03:38 Hepatitis A IgM Ab Negative (NEGATIVE) 05/21/17 10:54 Hep Bs Antigen Negative (NEGATIVE) 05/21/17 10:54 Hep B Core IgM Ab Negative (NEGATIVE) 05/21/17 10:54 Hepatitis C Antibody Negative (NEGATIVE) 05/21/17 10:54 HIV 1&2 Antibody Screen Negative (NEGATIVE) 05/25/17 06:59 Blood Type O POSITIVE 05/21/17 15:07 Antibody Screen Negative 05/21/17 15:07 Discharge Exam - Head Exam Head Exam: ATRAUMATIC, NORMAL INSPECTION Discharge Plan - Follow Up Plan Condition: STABLE Disposition: REHAB FACILITY/REHAB UNIT
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
[2017-06-02 08:30] LABS: BASO # 0.1 K/uL (0.0-0.2); BASO % 0.9 % (0.0-2.0); EOS # 0.2 K/uL (0.0-0.7); EOS % 1.9 % (0.0-4.0); HEMATOCRIT 44.4 % (35.0-51.0); LYMPH # 1.9 K/uL (1.0-4.3); LYMPH % 19.7 % (20.0-40.0); MEAN CELL VOLUME 91.9 fL (80.0-94.0); MEAN CORPUSCULAR HEMOGLOBIN 31.9 pg (27.0-31.0); MEAN CORPUSCULAR HGB CONC 34.7 g/dL (33.0-37.0); MEAN PLATELET VOLUME 9.4 fL (7.2-11.7); MONO # 0.9 K/uL (0.0-0.8); MONO % 9.6 % (0.0-10.0); RED CELL DISTRIBUTION WIDTH 13.5 % (11.5-14.5); WHITE BLOOD COUNT 9.8 K/uL (4.8-10.8)
[2017-06-02 08:40] LABS: ALB/GLOB RATIO 1.7 (1.0-2.1); ALKALINE PHOSPHATASE 116 U/L (38-126); ALT/SGPT 180 U/L (21-72); AST/SGOT 87 U/L (17-59); BILIRUBIN,TOTAL 0.9 mg/dL (0.2-1.3); BLOOD UREA NITROGEN 14 mg/dL (9-20); CALCIUM 8.8 mg/dl (8.6-10.4); CARBON DIOXIDE 25 mmol/L (22-30); CHLORIDE 100 mmol/L (98-107); GFR AFRICAN-AMERICAN > 60; GLUCOSE,RANDOM 84 mg/dL (75-110); PHOSPHOROUS 3.9 mg/dL (2.5-4.5); POTASSIUM 3.3 mmol/L (3.6-5.2); SODIUM 136 mmol/L (132-148); TOTAL PROTEIN 6.7 g/dL (6.3-8.3)
[2017-06-02] MEDS: diltiaZEM 300 mg/24 Hours CD Cap PO SCH (09:13)
[2017-06-02] MEDS: Enoxaparin 40 mg Syringe SC SCH (09:14)
[2017-06-02] MEDS: Docusate-Senna 50 mg-8.6 mg Tab PO SCH ×2 (09:16→17:43)
[2017-06-02] MEDS: Potassium Chloride 20 mEq ER Tab PO ONE ×2 (11:00→11:17)
[2017-06-02] MEDS ORDERED: Potassium Chloride 20 mEq ER Tab PO ONE (11:15)
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
[2017-06-03 07:26] LABS: BASO # 0.1 K/uL (0.0-0.2); BASO % 1.2 % (0.0-2.0); EOS # 0.2 K/uL (0.0-0.7); EOS % 2.3 % (0.0-4.0); HEMATOCRIT 44.7 % (35.0-51.0); LYMPH # 1.7 K/uL (1.0-4.3); MEAN CELL VOLUME 92.5 fL (80.0-94.0); MEAN CORPUSCULAR HEMOGLOBIN 31.8 pg (27.0-31.0); MEAN CORPUSCULAR HGB CONC 34.4 g/dL (33.0-37.0); MEAN PLATELET VOLUME 9.1 fL (7.2-11.7); MONO # 0.7 K/uL (0.0-0.8); MONO % 7.6 % (0.0-10.0); RED CELL DISTRIBUTION WIDTH 13.7 % (11.5-14.5); WHITE BLOOD COUNT 8.8 K/uL (4.8-10.8)
[2017-06-03 07:40] LABS: ALB/GLOB RATIO 1.5 (1.0-2.1); ALKALINE PHOSPHATASE 109 U/L (38-126); ALT/SGPT 174 U/L (21-72); AST/SGOT 73 U/L (17-59); BILIRUBIN,TOTAL 1.1 mg/dL (0.2-1.3); BLOOD UREA NITROGEN 14 mg/dL (9-20); CALCIUM 8.5 mg/dl (8.6-10.4); CARBON DIOXIDE 20 mmol/L (22-30); CHLORIDE 102 mmol/L (98-107); GFR AFRICAN-AMERICAN > 60; GLUCOSE,RANDOM 86 mg/dL (75-110); MAGNESIUM 1.8 mg/dL (1.6-2.3); POTASSIUM 3.4 mmol/L (3.6-5.2); SODIUM 136 mmol/L (132-148); TOTAL PROTEIN 6.6 g/dL (6.3-8.3)
[2017-06-03] MEDS ORDERED: Potassium Chloride 20 mEq ER Tab PO ONE (08:00)
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
[2017-06-03] MEDS: Docusate-Senna 50 mg-8.6 mg Tab PO SCH ×2 (10:24→17:31)
[2017-06-03] MEDS: Enoxaparin 40 mg Syringe SC SCH (10:24)
[2017-06-03] MEDS: diltiaZEM 300 mg/24 Hours CD Cap PO SCH (10:25)
--- NOTE | 2017-06-03 13:38 | CARD ---
APPROVED REPORT Protocol: PHARMACOLOGICAL STRESS Test Type: LEXISCAN Test Indications: CARDIAC ARRY. Medications: LIST SCAN Medical History: RECENT ONSET CARDIAC ARRYTHMIA,SVT A/FIB WITH RAPID Target HR: 180 bpm Resting ECG: normal Resting Heart Rate: 60 bpm Resting Blood Pressure: 126/70mmHg submaximum (85%): 153 bpm TEST SUMMARY [id number]. INFUSIONDOSE 100:300.00.07.116/.2. [id number]:170.00.081/.7. PROCEDURE Pharmacologic stress testing was performed using 0.4mg per 5ml of regadenoson given intravenously over 7-10 seconds. POST EXERCISE Reason for Termination: Protocol Completed Target HR: No Max HR: 66 bpm 45% of Maximum Predicted HR: 180 bpm Exercise duration: 00:30 min:sec, 0 Stage Exercise capacity: 1.0METs Max Blood Pressure: 126/70mmHg Blood Pressure response to exercise: N/A Heart Rate response to exercise: N/A Chest Pain: No, none Angina index: 0 Arrhythmia: No, none ST Change: No, none Deviation: 0 mm EXAM: Myocardial Perfusion STRESS/REST Imaging Protocol The imaging protocol used to acquire images was Stress Tc-99m/rest Tc-99m 2 day Stress Spect myocardial perfusion imaging was performed in supine position 45 minutes following the injection of 32.8 mCi of Tc-99 Myoview. Gated Rest Spect was performed 55 minutes after intravenous 32.5 mci Tc-99 Myoview injection. The images were gated to evaluate regional wall motion and calculate ventricular ejection fraction.Images were reconstructed using backfilter projection method in short horizontal and verticle long axis. Spect slices were generated. RESTING DATA FYO475.01deAH2.30L/min ESV66.00mlMyocardial Ipzq331.00g Av. Heart Rate52.00bpm EF56.00% STRESS DATA FJE135.20spYO5.80L/min ESV75.00mlMyocardial Bwwa311.00g EF55.00% Regional WT score at stress:1.00 Regional WM score at stress:0.00 Summed WT score at stress:14.00 Av. Heart Rate53.00bpmSummed WM score at stress:2.00 Study quality was fair. Left Ventricular size was Normal at Rest and Stress. Lung uptake was Normal. Left Ventricular ejection fraction is 52%. LV Perfusion 1 Perfusion Defect Location: apical lateral Perfusion Defect Size: Small (1-2 segments) Perfusion Defect Severity: Mild Type of Perfusion Defect: Reversible TCD/TID: No LV Perf. Quant 17 Seg. SSS4.00 17 Seg. SRS1.00 17 Seg. SDS3.00 Stress Defect Extent (% LAD)0.60Rest Defect Extent (% LAD)0.00Rev. Defect Extent (% LAD)0.60 Stress Defect Extent (% LCX)25.00Rest Defect Extent (% LCX)6.30Rev. Defect Extent (% LCX)13.80 Stress Defect Extent (% RCA)0.00Rest Defect Extent (% RCA)0.00Rev. Defect Extent (% RCA)0.00 Stress Defect Extent (% DAJA)7.60Rest Defect Extent (% DAJA)1.10Rev. Defect Extent (% DAJA)4.60 Other Information Quality:Fair Overall Exercise Capacity: not assessed Metabolism/Perfusion Reversible/Irreversible: - Small sized mild intensity reversible apical and lateral wall defect Conclusion 1. - Aggressive medical management and risk factor modification 2. - Consider further invasive workup if patient has ischemic symptoms.
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
[2017-06-03 16:06] VITALS: BP 120/75; PULSE 53; RESP 20; TEMP 97.8; O2SAT 99
== END 2017-06-03 20:00 | DRG 488 ==
LOC: C.ER 02:56 → C.6T 05:32 → C.9I 06:36 → C.6T 05-23 07:12
PROVIDERS: ADMIT Family Medicine; ATTEND Family Medicine
PROC: 0KBQ0ZZ Excision of Right Upper Leg Muscle, Open Approach (ICD-10-PCS; 2017-05-21)
PROC: 0SBC0ZZ Excision of Right Knee Joint, Open Approach (ICD-10-PCS; 2017-05-21)
PROC: 0HQKXZZ Repair Right Lower Leg Skin, External Approach (ICD-10-PCS; 2017-05-21)
PROC: B246ZZ4 Ultrasonography of Right and Left Heart, Transesophageal (ICD-10-PCS; 2017-05-21)
PROC: 0QBD0ZZ Excision of Right Patella, Open Approach (ICD-10-PCS; principal; 2017-05-21 14:15)
PROC: 0LQL0ZZ Repair Right Upper Leg Tendon, Open Approach (ICD-10-PCS; 2017-05-21 14:15)
PROC: 5A2204Z Restoration of Cardiac Rhythm, Single (ICD-10-PCS; 2017-05-27)
DX: S82.041B Displaced comminuted fracture of right patella, initial encounter for open fracture type I or II (principal); I47.1 Supraventricular tachycardia; E66.01 Morbid (severe) obesity due to excess calories; S20.219A Contusion of unspecified front wall of thorax, initial encounter; D72.829 Elevated white blood cell count, unspecified; F10.10 Alcohol abuse, uncomplicated; I48.92 Unspecified atrial flutter; J98.11 Atelectasis; S76.111A Strain of right quadriceps muscle, fascia and tendon, initial encounter; I48.91 Unspecified atrial fibrillation; W22.11XA Striking against or struck by driver side automobile airbag, initial encounter; S86.812A Strain of other muscle(s) and tendon(s) at lower leg level, left leg, initial encounter; V43.52XA Car driver injured in collision with other type car in traffic accident, initial encounter; Y92.410 Unspecified street and highway as the place of occurrence of the external cause; F17.210 Nicotine dependence, cigarettes, uncomplicated; I10 Essential (primary) hypertension; I25.10 Atherosclerotic heart disease of native coronary artery without angina pectoris; I34.0 Nonrheumatic mitral (valve) insufficiency; K59.00 Constipation, unspecified; M65.9 Synovitis and tenosynovitis, unspecified; Z79.82 Long term (current) use of aspirin; Z80.9 Family history of malignant neoplasm, unspecified